=== PATIENT | female | born 1940 | race Caucasian/White ===

== ENCOUNTER → 2016-11-14 | Outpatient (CLI) | payer MEDICARE ==
[~2016-11-14] MED LIST: ALPR0.5T10 PO; CRESTOR5 MG PO; MAGN500C PO; SUCR1TAB PO
--- NOTE | 2016-11-14 12:48 | KCIC ---
PROCEDURE Four view left knee HISTORY Acute pain of the left knee. Numbness and tingling. Pain anteriorly, for 1 day. COMPARISON None FINDINGS No evidence of acute fracture or bone destruction. Joint spaces are intact. No significant soft tissue abnormality. A couple of small soft tissue calcifications are noted on the tangential patellar view, appear chronic. IMPRESSION No acute radiographic findings. Electronically signed by: Reza Jain MD (Nov 14, 2016 12:47:41)
== END | disposition home or self-care (01) ==
LOC: KCIC 11:38
PROVIDERS: ATTEND Family Medicine
DX: M25.862 Other specified joint disorders, left knee (principal); R20.0 Anesthesia of skin
CPT/HCPCS: 73564

== ENCOUNTER → 2017-02-12 | Outpatient (CLI) | payer MEDICARE ==
[~2017-02-12] MED LIST changes: +ACLI400A2 IH; +ALLO300T PO; +ASPI81TA2 PO; +CALC1TAB75 PO; +CETI10TA22 PO; +DOCU-27 PO; +GLIM4TAB2 PO; +GUAI600T38 PO; +LEVO100T5 PO; +LIDO700A4 TP; +PANT40TA5 PO; +PRAM0.255 PO; +PROAIR HFA8.5 GM INH; +SILV20CR4 TP; +TRAM50TA PO
[2017-02-12 15:33] LABS: BASO # 0.1 x10^3/uL (0.0-0.2); BASO % 1 % (0-3); EOS % 6 % (0-3); HEMATOCRIT 39.1 % (36.0-47.0); HEMOGLOBIN 12.6 g/dL (12.0-15.5); LYMPH # 1.5 x10^3/uL (1.0-4.8); LYMPH % 25 % (24-48); MEAN CORPUSCULAR HEMOGLOBIN 31 pg (25-35); MEAN CORPUSCULAR HGB CONC 32 g/dL (31-37); MEAN CORPUSCULAR VOLUME 95 fL (79-100); MONO % 9 % (0-9); NEUT % 60 % (31-73); PLATELET COUNT 168 x10^3/uL (140-400); RED BLOOD COUNT 4.09 x10^6/uL (3.50-5.40); RED CELL DISTRIBUTION WIDTH 14.3 % (11.5-14.5); WHITE BLOOD COUNT 6.1 x10^3/uL (4.0-11.0)
[2017-02-12 16:02] LABS: ALBUMIN 3.3 g/dL (3.4-5.0); ALBUMIN/GLOBULIN RATIO 0.8 (1.0-1.7); CALCIUM 9.4 mg/dL (8.5-10.1); CREATININE 1.2 mg/dL (0.6-1.0); GFR 43.3; POTASSIUM 3.9 mmol/L (3.5-5.1); TOTAL BILIRUBIN 0.4 mg/dL (0.2-1.0); TOTAL PROTEIN 7.6 g/dL (6.4-8.2)
--- NOTE | 2017-02-13 10:35 | PREOP HP ---
DATE OF SERVICE: 02/16/2017 HISTORY OF PRESENT ILLNESS: The patient is a very pleasant 77-year-old woman, who is having difficulty with lower back pain and pain which radiates into both of her buttocks combined with weakness in her lower extremities, the right side is more involved than the left. The problem started about 5 years ago. Standing and walking increase her pain. Sitting gives her some relief. She takes tramadol for pain. She has had chiropractic help which initially gave her some relief, but currently is no longer effective. In , she did undergo lumbar surgery and did well from that. PAST MEDICAL HISTORY: Arthritis, gout, COPD, swelling of limbs, tumor/growth. PAST SURGICAL HISTORY: Back surgery in 1997, hysterectomy in 1996, cholecystectomy in 2006. FAMILY HISTORY: Alzheimer's, cancer, diabetes, heart problem/disease. SOCIAL HISTORY: Transit Bus Operator. . Exercises daily. Denies substance abuse. Denies tobacco use. Denies alcohol use. ALLERGIES: MORPHINE, CODEINE. CURRENT MEDICATIONS: Levothyroxine, alprazolam, pantoprazole, Crestor, , ProAir HFA, Lidoderm, tramadol, allopurinol, pramipexole, dihydrochloride, SSD, hydrocortisone, aspirin, magnesium, Mucinex, Zyrtec. REVIEW OF SYSTEMS: The 12-point review of systems was obtained and is noncontributory except for that mentioned above. NEUROSURGERY EXAMINATION: GENERAL APPEARANCE: Alert, pleasant, in no acute distress. HEAD: Normocephalic and atraumatic. SKIN: Warm and dry, well-healed lumbar incision. MUSCULOSKELETAL: Lumbar paraspinal muscle bulk is normal, restricted range of motion of lumbar spine, [id number] tenderness of lower lumbar spine with palpation. Normal range of motion of the lower extremities bilaterally. EXTREMITIES: No clubbing, cyanosis, or edema. NEUROLOGIC: Alert and oriented x 3, normal recent and remote memory, strength 5/5 in bilateral lower extremities, sensory was intact to light touch in bilateral lower extremities, reflexes were present and symmetric in the lower extremities bilaterally. Positive straight leg raising on the right, negative straight leg raising on the left, she uses a wheelchair. IMAGING DATA: Reviewed. I reviewed a recent lumbar MRI scan. On that study, postoperative changes were present at L3-L4. At L4-L5, there is severe lumbar stenosis present along with lateral recess narrowing. ASSESSMENT: 1. Spinal stenosis, lumbar region. PLAN: She has severe spinal stenosis and has failed improvement with conservative measures. My recommendation at this point is that consider undergoing lumbar laminectomy at L4-L5. I spoke with her about the surgery and the risks involved. She understands. She would like to go ahead. HAILE TOM MD DR: JEREMIAH/cande JOB#: [id number] / [id number]
== END | disposition home or self-care (01) ==
LOC: SURGPAT 16:25
PROVIDERS: ATTEND Neurological Surgery
DX: M48.06 Spinal stenosis, lumbar region (principal)
CPT/HCPCS: 36415; 80053; 85027; 87641

== ENCOUNTER 2017-02-16 06:59 | Observation (INO) | payer MEDICARE ==
[2017-02-16] VITALS (8 sets, daily range): BP systolic 142–187; BP diastolic 44–113
[~2017-02-16] VITALS: Ht 158.8 cm; Wt 114.3 kg
[~2017-02-16 06:59] MED LIST changes: +BACITRACIN 50,000 UNIT in IV NORMAL SALINE 1000ML BAG 1,000 ML IRR ONE; +BUPIVAC MPF-EPI 0.5%-1:200000 30 ML VIAL. ONE; +CEFAZOLIN 2GM PREMIX 50 ML IV PRN; -DOCU-27 PO; +GELATIN SPONGE SIZE 100. ONE; +KETOROLAC 60 MG/2 ML INJ FOR OR. ONE; -PRAM0.255 PO; +THROMBIN TOPICAL 20,000 UNIT SPRAY.SYRN KIT TP ONE
[2017-02-16] MEDS ORDERED: IV RINGERS,LACTATED 1000ML 1,000 ML IV SCH (07:00)
[2017-02-16] MEDS ORDERED: FENTANYL PF 100 MCG/2 ML VIAL. IV PRN ×4 (07:00→19:45)
[2017-02-16] MEDS ORDERED: PROCHLORPERAZINE 10 MG/2 ML VIAL. IV PRN (07:00)
[2017-02-16] MEDS ORDERED: ONDANSETRON PF 4 MG/2 ML VIAL. IV PRN ×2 (07:00→13:30)
[2017-02-16] MEDS ORDERED: LIDOCAINE 1% 1 ML SYRINGE. ID PRN (07:00)
[2017-02-16] MEDS ORDERED: ROCURONIUM 50 MG/5 ML VIAL. ONE (08:13)
[2017-02-16] MEDS ORDERED: DEXAMETHASONE SOD PHOS 20 MG/5 ML VIAL. ONE (08:13)
[2017-02-16] MEDS ORDERED: PHENYLEPHRINE 10 MG/ML VIAL. ONE (08:13)
[2017-02-16] MEDS ORDERED: PROPOFOL 50 ML IV ONE ×2 (08:13→10:20)
[2017-02-16] MEDS ORDERED: REMIFENTANIL 2 MG VIAL. IV ONE (08:13)
[2017-02-16] MEDS ORDERED: PROPOFOL 20 ML IV ONE (08:13)
[2017-02-16] MEDS ORDERED: LIDOCAINE 2% 100 MG/5 ML SYRINGE. ONE (08:13)
[2017-02-16] MEDS ORDERED: FENTANYL PF 100 MCG/2 ML VIAL. ONE (08:13)
[2017-02-16] MEDS ORDERED: ALBUTEROL SULFATE 2.5 MG/3 ML NEBU. ONE (08:22)
[2017-02-16] MEDS ORDERED: EPHEDRINE PF IN SALINE 50 MG/5 ML DISP.SYRIN. IV ONE (09:40)
[2017-02-16] MEDS ORDERED: NEOSTIGMINE METHYLSULFATE 5 MG/5 ML SYRINGE. ONE (11:07)
[2017-02-16] MEDS ORDERED: ONDANSETRON PF 4 MG/2 ML VIAL. ONE (11:07)
[2017-02-16] MEDS ORDERED: DESFLURANE > 120 MINUTES IH ONE (11:07)
[2017-02-16] MEDS ORDERED: GLYCOPYRROLATE 1 MG/5 ML VIAL. ONE (11:08)
[2017-02-16] MEDS ORDERED: ALBUTEROL SULFATE 2.5 MG/3 ML NEBU. NEB ONE (12:45)
[2017-02-16] MEDS ORDERED: FUROSEMIDE 20 MG/2 ML VIAL. IVP ONE (12:45)
[2017-02-16] MEDS ORDERED: ALBUTEROL SULFATE 2.5 MG/3 ML NEBU. NEB PRN (13:15)
[2017-02-16] MEDS ORDERED: MAGNESIUM HYDROXIDE 2,400 MG/30 ML ORAL.SUSP. PO PRN (13:30)
[2017-02-16] MEDS ORDERED: MAG HYDROX/ALUMINUM HYD/SIMETH 30 ML ORAL.SUSP PO PRN (13:30)
[2017-02-16] MEDS ORDERED: 0.9 % SODIUM CHLORIDE 10 ML DISP.SYRIN. IV PRN (13:30)
[2017-02-16] MEDS ORDERED: CALCIUM CARBONATE 500 MG TAB.CHEW PO PRN (13:30)
[2017-02-16] MEDS ORDERED: DIPHENHYDRAMINE HCL 25 MG CAPSULE PO PRN (13:30)
[2017-02-16] MEDS ORDERED: DIPHENHYDRAMINE 50 MG/ML VIAL. IV PRN (13:30)
[2017-02-16] MEDS ORDERED: CETIRIZINE HCL 10 MG TABLET. PO PRN (13:45)
[2017-02-16] MEDS ORDERED: TRAMADOL 50 MG TABLET. PO SCH (13:45)
[2017-02-16] MEDS ORDERED: TRAMADOL 50 MG TABLET. PO PRN (13:45)
[2017-02-16] MEDS ORDERED: NON FORMULARY ITEM (Albuterol Sulfate (Proair Hfa Inhaler) 2 PUFF) INH PRN (13:45)
--- NOTE | 2017-02-16 13:51 | RAD ---
Exam: AP portable chest. History: Provided history is rule out pulmonary edema. Comparison: 02/07/2010. Findings: The heart and mediastinal structures are within normal limits for size. Lungs are without infiltrate. No pneumothorax or pleural effusion is appreciated. Impression: 1. No acute cardiopulmonary process.
[2017-02-16 13:55] LABS: HCO3 ABG 22 mmol/L (21-28); PCO2 ABG 39 mmHg (35-46); PH ABG 7.38 (7.35-7.45); PO2 ABG 77 mmHg (65-108); SAT O2 ABG 96 % (92-99)
[2017-02-16] MEDS: TRAMADOL 50 MG TABLET. PO PRN ×2 (14:50→21:07)
--- NOTE | 2017-02-16 14:50 | PDOC ---
Provider Note Provider Note dictated Mild AECOPD CHRISTIANO CADENA MD Feb 16, 2017 14:50
[2017-02-16 14:59] LABS: FIO2 ABG 36
[2017-02-16] MEDS ORDERED: POTASSIUM CL 20MEQ D5-0.45NACL 1,000 ML IV SCH (15:00)
--- NOTE | 2017-02-16 15:34 | CONS ---
DATE OF CONSULTATION: 02/16/2017 ATTENDING PHYSICIAN: Sanchez Ramirez M.D. REASON FOR CONSULTATION: Dyspnea. HISTORY OF PRESENT ILLNESS: The patient is a 77-year-old female, who has been having lower back pain for some time. She was seen by Dr. Sanchez Ramirez, underwent laminectomy. Postoperatively, she was noted to have increasing oxygen requirement and some rhonchi and wheezes. As a result, consultation was obtained and she has been hospitalized. She received breathing treatments. Arterial blood gases obtained later on 4 liters showed a pH of 7.38, pCO2 of 30, and a pO2 of 77. Her chest x-ray did not reveal any acute infiltrates. She feels much better and I have been asked to see her for further evaluation. PAST MEDICAL HISTORY: History of COPD, history of arthritis, and chronic back pain. PAST SURGICAL HISTORY: Back surgery in 1997, hysterectomy in 1996, and cholecystectomy in 2006. FAMILY HISTORY: Alzheimer's disease, cancer, diabetes, and heart problems. SOCIAL HISTORY: She has been a motion graphics artist. . She has a history of tobacco use for 60 years; she quit 7 years ago. REVIEW OF SYSTEMS: Twelve-point systems obtained, pertinent positives discussed in history of present illness, otherwise noncontributory. All systems that were negative were reviewed as well. ALLERGIES: MORPHINE, CODEINE. MEDICATIONS: Reviewed as listed in the MRAD. PHYSICAL EXAMINATION: GENERAL: She is awake, following commands. VITAL SIGNS: Stable. Pulse ox is now in the 90s. HEENT: Sclerae nonicteric. NECK: Supple. LUNGS: Clear breath sounds. No wheezing. CARDIOVASCULAR: Regular rate and rhythm. ABDOMEN: Soft, nontender, obese. EXTREMITIES: With trace pitting edema. LABORATORY DATA: Chest x-ray was reviewed and it is clear with no evidence of CHF. Arterial blood gases are discussed as above. IMPRESSION: 1. Mild postoperative respiratory failure secondary to chronic obstructive pulmonary disease exacerbation. Clinically improved. 2. No evidence of congestive heart failure by chest x-ray. 3. No evidence of pneumonia by chest x-ray. 4. Underlying obesity. RECOMMENDATIONS: 1. Continue with present bronchodilators treatment. 2. Wean off oxygen. 3. Incentive spirometry. 4. Follow Neurosurgery recommendation. 5. Anticipate a hospitalization for 24 hours. CHRISTIANO CADENA MD DR: IAN/cande JOB#: [id number] / [id number]
[2017-02-16] MEDS: METHOCARBAMOL 750 MG TABLET PO SCH ×2 (16:02→21:07)
[2017-02-16] MEDS: SUCRALFATE 1 GM TABLET. PO SCH ×2 (16:22→21:08)
[2017-02-16] MEDS: IPRATRPIUM/ALBUTEROL 0.5/2.5MG 3 ML NEBU. NEB SCH ×2 (16:58→20:46)
[2017-02-16] MEDS ORDERED: PRAM0.255 PO (19:11)
[2017-02-16] MEDS ORDERED: PRAMIPEXOLE 0.25 MG TABLET. PO SCH (21:00)
[2017-02-16] MEDS: ALPRAZOLAM 0.5 MG TABLET. PO SCH (21:00)
[2017-02-16] MEDS: MAGNESIUM OXIDE 400 MG TABLET PO SCH (21:00)
[2017-02-16] MEDS ORDERED: ACLIDINIUM BROMIDE IH SCH (21:00)
[2017-02-16] MEDS: DOCUSATE SODIUM 100 MG CAPSULE. PO SCH (21:08)
[2017-02-17 03:27] VITALS: BP_SYST 119; BP_SYST 154; BP_DIAS 50; BP_DIAS 69
[2017-02-17] MEDS: TRAMADOL 50 MG TABLET. PO PRN (05:33)
[2017-02-17 07:00] VITALS: BP 129/69
[2017-02-17] MEDS ORDERED: LEVOTHYROXINE 100 MCG TABLET PO SCH (07:00)
[2017-02-17] MEDS: SUCRALFATE 1 GM TABLET. PO SCH (07:12)
[2017-02-17] MEDS: IPRATRPIUM/ALBUTEROL 0.5/2.5MG 3 ML NEBU. NEB SCH (07:30)
[2017-02-17] MEDS ORDERED: PANTOPRAZOLE 40 MG TABLET.DR. PO SCH (07:30)
[2017-02-17] MEDS: METHOCARBAMOL 750 MG TABLET PO SCH (08:21)
[2017-02-17] MEDS: MAGNESIUM OXIDE 400 MG TABLET PO SCH (08:23)
[2017-02-17] MEDS: ALPRAZOLAM 0.5 MG TABLET. PO SCH (08:24)
[2017-02-17] MEDS: DOCUSATE SODIUM 100 MG CAPSULE. PO SCH (08:24)
[2017-02-17] MEDS ORDERED: silver sulfADIAZINE 1% CREAM 25GM TUBE. TP SCH (09:00)
[2017-02-17] MEDS ORDERED: GUAIFENESIN ER 600 MG TABLET.ER PO SCH (09:00)
[2017-02-17] MEDS ORDERED: GLIMEPIRIDE 2 MG TABLET. PO SCH (09:00)
[2017-02-17] MEDS ORDERED: ASPIRIN CHEWABLE 81 MG TABLET. PO SCH (09:00)
[2017-02-17] MEDS ORDERED: ALLOPURINOL 300 MG TABLET. PO SCH (09:00)
[2017-02-17] MEDS ORDERED: LIDOCAINE (700MG/PATCH) PATCH. TP SCH (09:00)
--- NOTE | 2017-02-17 09:23 | PDOC ---
PULMONARY PROGRESS NOTES Subjective no sob, occ cough, no pain, ready to go home Vitals Vital Signs Date Time Temp Pulse Resp B/P Pulse Ox O2 Delivery O2 Flow Rate FiO2 02/17/17 07:31 94 Room Air 02/17/17 07:00 97.9 88 20 129/69 97.9 02/17/17 03:27 2.0 ROS: No Nausea, No Chest Pain, No Abdominal Pain, No Increase Cough General: Alert HEENT: Other (nxc at perrl nose throat clear) Lungs: Clear Cardiovascular: S1, S2 Abdomen: Soft, Non-tender Neuro Exam: Alert Extremities: No Edema Skin: Warm Labs Laboratory Tests Test 02/16/17 07:58 02/16/17 12:24 02/16/17 13:15 02/16/17 17:00 Glucose (Fingerstick) 127mg/dL (70-99) 173mg/dL (70-99) 277mg/dL (70-99) O2 Saturation 96% (92-99) Arterial Blood pH 7.38 (7.35-7.45) Arterial Blood pCO2 at Patient Temp 39mmHg (35-46) Arterial Blood pO2 at Patient Temp 77mmHg (65-108) Arterial Blood HCO3 22mmol/L (21-28) Arterial Blood Base Excess -3mmol/L (-3-3) FiO2 36 Test 02/16/17 20:47 02/17/17 07:27 Glucose (Fingerstick) 348mg/dL (70-99) 223mg/dL (70-99) Laboratory Tests Test 02/16/17 12:24 02/16/17 13:15 02/16/17 17:00 02/16/17 20:47 Glucose (Fingerstick) 173mg/dL (70-99) 277mg/dL (70-99) 348mg/dL (70-99) O2 Saturation 96% (92-99) Arterial Blood pH 7.38 (7.35-7.45) Arterial Blood pCO2 at Patient Temp 39mmHg (35-46) Arterial Blood pO2 at Patient Temp 77mmHg (65-108) Arterial Blood HCO3 22mmol/L (21-28) Arterial Blood Base Excess -3mmol/L (-3-3) FiO2 36 Test 02/17/17 07:27 Glucose (Fingerstick) 223mg/dL (70-99) Medications Active Scripts Medications Dose Route/Sig Days Date Category Mirapex (Pramipexole Di-Hcl) 0.25 Mg Tablet 1 Tab PO QHS 02/16/17 Reported Magnesium (Magnesium Oxide) 500 Mg Capsule 500 Mg PO BID 02/12/17 Reported Mucinex (Guaifenesin) 600 Mg Tablet.er 600 Mg PO DAILY 02/12/17 Reported Zyrtec (Cetirizine Hcl) 10 Mg Tablet 10 Mg PO 02/12/17 Reported Calcium 600 + Vit D 200 Tablet (Calcium Carbonate/Vitamin D3) 1 Each Tablet 1 Each PO QMWF 02/12/17 Reported Allopurinol 300 Mg Tablet 300 Mg PO DAILY 02/12/17 Reported Silvadene (Silver Sulfadiazine) 20 Gm Cream..g. 1 Radames TP DAILY 02/12/17 Reported Lidoderm (Lidocaine) 700 Mg Adh..patch 1 Patch TP DAILY 02/12/17 Reported Proair Hfa Inhaler (Albuterol Sulfate) 8.5 Gm Hfa.aer.ad 2 Puff INH PRN Q6HRS PRN 02/12/17 Reported Tudorza Pressair (Aclidinium [place]) 400 Mcg Aer.pow.ba 2 Puff IH BID 02/12/17 Reported Pantoprazole Sodium 40 Mg Tablet.dr 40 Mg PO DAILY 02/12/17 Reported Glimepiride 4 Mg Tablet 1 Tab PO DAILY 02/12/17 Reported Levothyroxine Sodium 100 Mcg Tablet 1 Tab PO DAILY 02/12/17 Reported Aspirin 81 Mg Tab.chew 1 Tab PO DAILY 02/12/17 Reported Tramadol Hcl 50 Mg Tablet 1-2 Tab PO BID 02/12/17 Reported Sucralfate 1 Gm Tablet 1 Gm PO QIDACHS 02/13/14 Reported Alprazolam 0.5 Mg Tab.rapdis 0.5 Mg PO BID 02/13/14 Reported Impression . IMPRESSION: 1. Mild postoperative respiratory failure secondary to chronic obstructive pulmonary disease exacerbation. Clinically improved. 2. No evidence of congestive heart failure by chest x-ray. 3. No evidence of pneumonia by chest x-ray. 4. Underlying obesity. Plan . RECOMMENDATIONS: 1. bronchodilators treatment. 2. off oxygen. 3. Incentive spirometry. 4. Follow Neurosurgery recommendation. 5. ok to dc discussed w EDUAR Galeana MD Feb 17, 2017 09:23
--- NOTE | 2017-02-17 10:20 | DISCH ---
DISCHARGE INSTRUCTIONS Condition on Discharge Condition on Discharge: Stable Activity After Discharge Activity Instructions for Disc: Activity as tolerated, Avoid exertion Other activity instructions: no driving for a week Bathing Instructions: Shower-keep dressing dry Lifting Instructions after Dis: No heavy lifting, No pulling or pushing, Do not lift >10 pounds Diet after Discharge Additional Diet Restrictions: resume home diet Wound Incision Care Wound/Incision Care: Ice to area for comfort Other wound/incision instructi: may remove dressing tomorrow if dry than may shower- no soaking Contacting the after DC Call your doctor for: Concerns you may have Follow-Up Follow up with: Dr. Tom's nurse [phone] HAILE TOM MD Feb 17, 2017 10:20
[2017-02-17] MEDS ORDERED: DOCU-27 PO (10:25)
[2017-02-17 11:00] VITALS: BP 146/61
--- NOTE | 2017-02-18 11:32 | PREOP HP ---
DATE OF SERVICE: 02/16/2017 HISTORY OF PRESENT ILLNESS: The patient is a very pleasant 77-year-old woman, who is having difficulty with lower back pain and pain which radiates into both of her buttocks combined with weakness in her lower extremities, the right side is more involved than the left. The problem started about 5 years ago. Standing and walking increase her pain. Sitting gives her some relief. She takes tramadol for pain. She has had chiropractic help which initially gave her some relief, but currently is no longer effective. In , she did undergo lumbar surgery and did well from that. PAST MEDICAL HISTORY: Arthritis, gout, COPD, swelling of limbs, tumor/growth. PAST SURGICAL HISTORY: Back surgery in 1997, hysterectomy in 1996, cholecystectomy in 2006. FAMILY HISTORY: Alzheimer's, cancer, diabetes, heart problem/disease. SOCIAL HISTORY: Program Lead. . Exercises daily. Denies substance abuse. Denies tobacco use. Denies alcohol use. ALLERGIES: MORPHINE, CODEINE. CURRENT MEDICATIONS: Levothyroxine, alprazolam, pantoprazole, Crestor, , ProAir HFA, Lidoderm, tramadol, allopurinol, pramipexole, dihydrochloride, SSD, hydrocortisone, aspirin, magnesium, Mucinex, Zyrtec. REVIEW OF SYSTEMS: The 12-point review of systems was obtained and is noncontributory except for that mentioned above. NEUROSURGERY EXAMINATION: GENERAL APPEARANCE: Alert, pleasant, in no acute distress. HEAD: Normocephalic and atraumatic. SKIN: Warm and dry, well-healed lumbar incision. MUSCULOSKELETAL: Lumbar paraspinal muscle bulk is normal, restricted range of motion of lumbar spine, [id number]-[id number] tenderness of lower lumbar spine with palpation. Normal range of motion of the lower extremities bilaterally. EXTREMITIES: No clubbing, cyanosis, or edema. NEUROLOGIC: Alert and oriented x 3, normal recent and remote memory, strength 5/5 in bilateral lower extremities, sensory was intact to light touch in bilateral lower extremities, reflexes were present and symmetric in the lower extremities bilaterally. Positive straight leg raising on the right, negative straight leg raising on the left, she uses a wheelchair. IMAGING DATA: Reviewed. I reviewed a recent lumbar MRI scan. On that study, postoperative changes were present at L3-L4. At L4-L5, there is severe lumbar stenosis present along with lateral recess narrowing. ASSESSMENT: 1. Spinal stenosis, lumbar region. PLAN: She has severe spinal stenosis and has failed improvement with conservative measures. My recommendation at this point is that consider undergoing lumbar laminectomy at L4-L5. I spoke with her about the surgery and the risks involved. She understands. She would like to go ahead. HAILE TOM MD DR: JEREMIAH/cande JOB#: [id number] / [id number]
[2017-02-19] MEDS ORDERED: CALCIUM CARB/VIT D3 500/200 TABLET. PO SCH (09:00)
--- NOTE | 2017-02-19 15:09 | PATHOLOGY ---
PATHOLOGY REPORT * * * * * * * * FINAL DIAGNOSIS: Segments of fibrocartilaginous, fibroadipose, and skeletal muscle tissue, lumbar decompression: - Focal degenerative changes of fibrocartilaginous tissue. COMMENT: There is no evidence of an acute inflammatory process or malignancy. (JPM:; d/t: 02/19/17) REPORT ELECTRONICALLY SIGNED BY: Wade Christian M.D. DATE/TIME: 02/19/2017 15:08 * * * * * * * * GROSS PATHOLOGY: Received in formalin labeled "Julissa Bowie, lumbar decompression" are multiple segments of campos, rubbery, and gritty tissue. The specimen measures 4.9 x 3.8 x 1.1 cm in aggregate dimensions. The tissue is submitted representatively in cassette A1.(CAA; 02/16/2017) INITIAL CPT CODE(S): A; 30419 Professional services performed [place] [facility] [place] [address] Technical services performed by [facility] at [address] [place] [address] [address], [place] [address]. SPECIMEN(S) RECEIVED: A.Lumbar decompression CLINICAL HISTORY: Lumbar stenosis PATIENT: JULISSA BOWIE /AGE: 3 1940 (Age: 77) PATIENT #: [id number] ALT CASE #: SPECIMEN COLLECTION DATE: 02/16/2017 SPECIMEN RECEIVED DATE: 02/16/2017 [facility] - [address] [place] [address] - PHONE: [phone] * * * END OF REPORT * * *
--- NOTE | 2017-02-27 21:08 | OP ---
DATE OF SURGERY: 02/16/2017 PREOPERATIVE DIAGNOSES: Lumbar spinal stenosis L4-L5 with severe lumbar radiculopathy. POSTOPERATIVE DIAGNOSES: Lumbar spinal stenosis L4-L5 with severe lumbar radiculopathy. OPERATION PERFORMED: Bilateral hemilaminotomies with decompression of dura and nerve root L4-L5. This is re-operation. OPERATIVE INDICATIONS: The patient is a very pleasant 77-year-old woman who was having difficulty with low back pain and pain which radiates to both of her lower extremities. On imaging studies, she was found to have severe lumbar spinal stenosis at L4-L5. In the past, she has undergone lumbar surgery at L3-L4 and L4-L5, and I recommended micro decompressive surgery after she failed to improve with conservative measures. She understood the surgery and the risks involved, she wished to go ahead. DESCRIPTION OF PROCEDURE: Following general endotracheal anesthesia, the patient was positioned prone on the operating room table. We were careful to avoid any pressure points. Her lumbar region was prepped and draped in the standard fashion. JUDY hose and A-V impulse boots were applied for DVT prophylaxis. The microscope was draped, fluoroscopy was draped and brought into field. Monitoring was established. Ancef 2 grams was given less than 1 hour prior to initiation of the surgery. Using fluoroscopic guidance, a midline incision was made directly over the L4-L5 interspace. I dissected down through the skin and subcutaneous tissue and reflected the paraspinal muscles off the transverse processes and lamina of L4 and L5 and I placed a Veteran micro disk retractor on the right side. I brought in the long curettes and I exposed the edges of her previous surgery and removed considerable scar. I then brought in the high-speed air drill previous operation superiorly, laterally and inferiorly with a high-speed air drill through the microscope with using microscopic technique. I decompressed the exiting roots. I worked superiorly and removed scar and then I peeled away ligamentum flavum superiorly from medial to laterally and then carried this dissection inferiorly. I exposed the disk and no diskectomy was warranted. I fully decompressed the entire region. I worked virtually to the midline. After this was accomplished, then I went to the left side and I performed the identical operation on the left side. Again I used a high-speed air drill. Again I trimmed away thickened scar and thickened ligamentum flavum, exposed the dura and I obtained a wide decompression. Again, no diskectomy was warranted. I irrigated copiously. I felt that I had an excellent decompression of the entire region. I then removed the retractor, obtained hemostasis in the muscle, irrigated copiously. I then closed the wound with absorbable suture. The skin was closed with 4-0 subcuticular stitch. Operation went very well and the patient was taken to recovery room in excellent condition. I was quite pleased with the surgery. HAILE TOM MD DR: JEREMIAH/cande JOB#: [id number] / [id number]
== END 2017-02-17 12:00 | disposition home or self-care (01) ==
LOC: SURG 06:59 → 4 NORTH 13:24
PROVIDERS: ADMIT Neurological Surgery; ATTEND Neurological Surgery
DX: M48.06 Spinal stenosis, lumbar region (principal); M54.16 Radiculopathy, lumbar region; E66.9 Obesity, unspecified; J95.821 Acute postprocedural respiratory failure; M10.9 Gout, unspecified; Z87.891 Personal history of nicotine dependence; Z90.49 Acquired absence of other specified parts of digestive tract; Z90.710 Acquired absence of both cervix and uterus; Z87.09 Personal history of other diseases of the respiratory system; M19.90 Unspecified osteoarthritis, unspecified site
CPT/HCPCS: 36600; 63047; 71010; 76000; 82805; 82947; 88304; 94250; 94640; 94760; 97161; G0378; G0379; G8978; G8979; G8980; J0690; J1100; J1885; J2405; J2704; J2710; J3010; J3490; J7030; J7120; J7620; J0780

== ENCOUNTER 2017-09-03 21:45 | Inpatient (IN) | payer MEDICARE ==
[~2017-09-03] VITALS: Ht 154.9 cm; Wt 111.7 kg
[~2017-09-03 21:45] MED LIST changes: +ASPI-630 PO; -ASPI81TA2 PO; -BACITRACIN 50,000 UNIT in IV NORMAL SALINE 1000ML BAG 1,000 ML IRR ONE; -BUPIVAC MPF-EPI 0.5%-1:200000 30 ML VIAL. ONE; -CEFAZOLIN 2GM PREMIX 50 ML IV PRN; +DOCU-109 PO; -GELATIN SPONGE SIZE 100. ONE; -GUAI600T38 PO; +GUAI600T47 PO; -KETOROLAC 60 MG/2 ML INJ FOR OR. ONE; -MAGN500C PO; +MAGN500C10 PO; +PRAM0.255 PO; +SILV20CR14 TP; -SILV20CR4 TP; -THROMBIN TOPICAL 20,000 UNIT SPRAY.SYRN KIT TP ONE
--- NOTE | 2017-09-03 22:05 | PHYS DOC ---
Past Medical History Past Medical History: COPD, Diabetes-Type II, Hypertension Additional Past Medical Histor: Hernia (not repaired) Past Surgical History: Cholecystectomy, Hysterectomy Additional Past Surgical Histo: Back (February 2017) Smoking: Quit Greater Than 1 Year Drug Use: None Social History Narrative: Adult General Chief Complaint Chief Complaint: NAUSEA/VOMITING/DIARRHA HPI HPI Patient is a 77 year old female who presents with abdominal pain. She was feeling poorly earlier in the day she states at 2 PM when she was "queasy." She then ate at 1900 PM (Jell-O, fruit, yogurt and popcorn) and then developed severe abdominal pain. Pain is around her bellybutton. Became very nauseated and vomited greater than 7 time she states. She's been having normal stools but recently she started becoming quite constipated. No known fever. No chest pain or difficulty breathing. No recent travel. Followed by Dr Jesica Loomis Review of Systems Review of Systems Constitutional: Denies fever or chills Eyes: Denies change in visual acuity, redness, or eye pain HENT: Denies nasal congestion or sore throat Respiratory: Denies cough or shortness of breath Cardiovascular: No chest pain GI: POS abdominal pain, nausea, vomiting, DENIES bloody stools or diarrhea : Denies dysuria or hematuria Musculoskeletal: Denies back pain or joint pain Integument: Denies rash or skin lesions Neurologic: Denies headache, focal weakness or sensory changes Current Medications Current Medications Current Medications Medications (Trade) Dose Ordered Sig/Gabbie Start Time Stop Time Status Last Admin Dose Admin Fentanyl Citrate (Fentanyl 2ml Vial) 50 mcg PRN Q2HR PRN 09/04/17 00:30 09/05/17 00:29 Ondansetron HCl (Zofran) 4 mg PRN Q8HRS PRN 09/04/17 00:30 09/05/17 00:29 Sodium Chloride 1,000 ml @ 125 mls/hr 1X ONCE 09/04/17 00:30 09/04/17 08:29 Allergies Allergies Allergies Coded Allergies Type Severity Reaction Last Updated Verified codeine Allergy Intermediate Nausea and Vomiting 02/16/17 Yes morphine Allergy Intermediate Nausea and Vomiting 02/16/17 Yes Physical Exam Physical Exam Constitutional: Well developed, well nourished, no acute distress, non-toxic appearance. HENT: Normocephalic, atraumatic, bilateral external ears normal, oropharynx moist, no oral exudates, nose normal. Eyes: PERRLA, EOMI, conjunctiva normal, no discharge. Neck: Normal range of motion, no tenderness, supple, no stridor. Cardiovascular:Heart rate regular rhythm, no murmur Lungs & Thorax: Bilateral breath sounds clear to auscultation Abdomen: Bowel sounds normal, soft, DIFFUSE tenderness; no rebound or guarding; mass palpable infra-umbilical, no pulsatile masses. Skin: Warm, dry, no erythema, no rash. Back: No tenderness, no CVA tenderness. Extremities: No tenderness, no cyanosis, no clubbing, ROM intact, no edema. Neurologic: Alert and oriented X 3, normal motor function, normal sensory function, no focal deficits noted. Psychologic: Affect normal, judgement normal, mood normal. Current Patient Data Vital Signs Vital Signs Date Time Temp Pulse Resp B/P (MAP) Pulse Ox O2 Delivery O2 Flow Rate FiO2 09/03/17 23:30 84 18 139/52 (81) 94 Room Air 09/03/17 21:53 98.4 98.4 Lab Values Laboratory Tests Test 09/03/17 21:50 White Blood Count 14.8 x10^3/uL (4.0-11.0) H Red Blood Count 4.67 x10^6/uL (3.50-5.40) Hemoglobin 14.6 g/dL (12.0-15.5) Hematocrit 43.8 % (36.0-47.0) Mean Corpuscular Volume 94 fL (79-100) Mean Corpuscular Hemoglobin 31 pg (25-35) Mean Corpuscular Hemoglobin Concent 33 g/dL (31-37) Red Cell Distribution Width 13.8 % (11.5-14.5) Platelet Count 186 x10^3/uL (140-400) Neutrophils (%) (Auto) 81 % (31-73) H Lymphocytes (%) (Auto) 13 % (24-48) L Monocytes (%) (Auto) 5 % (0-9) Eosinophils (%) (Auto) 1 % (0-3) Basophils (%) (Auto) 1 % (0-3) Neutrophils # (Auto) 11.9 x10^3uL (1.8-7.7) H Lymphocytes # (Auto) 1.9 x10^3/uL (1.0-4.8) Monocytes # (Auto) 0.7 x10^3/uL (0.0-1.1) Eosinophils # (Auto) 0.2 x10^3/uL (0.0-0.7) Basophils # (Auto) 0.1 x10^3/uL (0.0-0.2) Sodium Level 141 mmol/L (136-145) Potassium Level 4.3 mmol/L (3.5-5.1) Chloride Level 103 mmol/L (98-107) Carbon Dioxide Level 28 mmol/L (21-32) Anion Gap 10 (6-14) Blood Urea Nitrogen 27 mg/dL (7-20) H Creatinine 1.6 mg/dL (0.6-1.0) H Estimated GFR (Cockcroft-Gault) 31.1 BUN/Creatinine Ratio 17 (6-20) Glucose Level 147 mg/dL (70-99) H Calcium Level 9.6 mg/dL (8.5-10.1) Total Bilirubin 0.4 mg/dL (0.2-1.0) Aspartate Amino Transferase (AST) 31 U/L (15-37) Alanine Aminotransferase (ALT) 26 U/L (14-59) Alkaline Phosphatase 100 U/L (46-116) Creatine Kinase 122 U/L (26-192) Creatine Kinase MB (Mass) 1.0 ng/mL (0.0-3.6) Creatine Kinase MB Relative Index 0.8 % (0-4) Troponin I Quantitative < 0.017 ng/mL (0.000-0.055) Total Protein 9.5 g/dL (6.4-8.2) H Albumin 4.0 g/dL (3.4-5.0) Albumin/Globulin Ratio 0.7 (1.0-1.7) L Lipase 110 U/L (73-393) Laboratory Tests 09/03/17 21:50 Laboratory Tests 09/03/17 21:50 EKG EKG EKG interpreted by myself at 2244 PM with NSR, rate 83, no acute ST elevation; non specific ST changes. Radiology/Procedures Radiology/Procedures [facility] [address] [place] [address] IMAGING REPORT Signed PATIENT: BHUMI BOWIE ACCOUNT: [id number] : 1940 LOCATION: ER AGE: 77 SEX: F EXAM STATUS: REG ER ORD. PHYSICIAN: ROMARIO OLIVEIRA MD REASON: abd pain; hernia; elev WBC; r/o obstruction PROCEDURE: CT ABDOMEN PELVIS WO CONTRAST CT scan of the abdomen and pelvis without contrast 09/03/2017 CLINICAL HISTORY: Abdominal pain with nausea. TECHNIQUE: Unenhanced, contiguous, 5 mm axial sections were obtained through the abdomen and pelvis. One or more of the following individualized dose reduction techniques were utilized for this study: 1. Automated exposure control. 2. Adjustment of the mA and/or kV according to patient size. 3. Use of iterative reconstruction technique. FINDINGS: Images through the lung bases demonstrate mild cardiomegaly. A 6 mm calcified granuloma is seen involving the left lower lobe. The liver, spleen, pancreas, adrenal glands and kidneys are within normal limits. Moderate atherosclerotic calcification of the abdominal aorta and its branches is noted. The abdominal aorta tapers normally. Surgical clips are seen within the gallbladder fossa consistent with a cholecystectomy. No free fluid or free air is seen within the abdomen. Mildly dilated air and fluid-filled small and large bowel loops are seen throughout the abdomen without definite evidence of bowel obstruction. The appendix is well-visualized and is within normal limits. A fat-containing ventral hernia is seen which measures 6.8 cm transverse diameter. This is superior to the umbilicus. Images through the pelvis demonstrate the urinary bladder to be slightly contracted. Patient is post hysterectomy. No adnexal mass is seen. No free fluid is noted. Degenerative changes are seen involving the thoracic and throughout the lumbar spine and both hips. IMPRESSION: No acute abnormality is seen. Electronically signed by: Christopher Earl MD (09/04/2017 12:04 AM) [facility] DICTATED and SIGNED BY: CHRISTOPHER EARL MD DATE: 09/03/17 4825 CC: ROMARIO OLIVEIRA MD; JESICA SORIA MD ~ Course & Med Decision Making Course & Med Decision Making Evaluated patient upon arrival. Concerned about hernia causing pain with vomiting. IV NS, Zofran. At 2320 PM: Elev BUN/Cr; Elev WBC. Ct ordered without contrast. At 0015 AM: CT results back with hernia without incarceration but with dilated loops of bowel. Admit (Spoke w Dr Gee). Keep NPO. I have spoken with the patient and/or caregivers. I have explained the patient' s condition, diagnosis and treatment plan based on the information available to me at this time. I have answered the patient's and/or caregiver's questions and addressed any concerns. The patient and/or caregivers have as good an understanding of the patient's diagnosis, condition and treatment plan as can be expected at this point. The patient has been stabilized within the capability of the emergency department. The patient will be transported for further care and management or will be moved to an observation or inpatient service. I have communicated with the staff or medical practitioner taking over this patient's care. I have assessed this patient clinically and believe that their condition requires admission to the hospital. After consulting the admitting physician about this case, they have asked that I admit this patient to their service as an inpatient based on the clinical presentation and my impression. Dragon Disclaimer Dragon Disclaimer This electronic medical record was generated, in whole or in part, using a voice recognition dictation system. Departure Departure Impression: Primary Impression: Abdominal pain Additional Impression: Hernia of abdominal cavity Disposition: ADMITTED INPATIENT Admitting Physician: Deana Gee Condition: STABLE Referrals: JESICA SORIA MD (PCP) Problem Qualifiers Primary Impression: Abdominal pain Abdominal location: periumbilical Qualified Codes: R10.33 - Periumbilical pain ROMARIO OLIVEIRA MD Sep 03, 2017 22:05
[2017-09-03 22:10] LABS: BASO # 0.1 x10^3/uL (0.0-0.2); BASO % 1 % (0-3); EOS % 1 % (0-3); HEMATOCRIT 43.8 % (36.0-47.0); HEMOGLOBIN 14.6 g/dL (12.0-15.5); LYMPH # 1.9 x10^3/uL (1.0-4.8); LYMPH % 13 % (24-48); MEAN CORPUSCULAR HEMOGLOBIN 31 pg (25-35); MEAN CORPUSCULAR HGB CONC 33 g/dL (31-37); MEAN CORPUSCULAR VOLUME 94 fL (79-100); MONO % 5 % (0-9); NEUT % 81 % (31-73); PLATELET COUNT 186 x10^3/uL (140-400); RED BLOOD COUNT 4.67 x10^6/uL (3.50-5.40); RED CELL DISTRIBUTION WIDTH 13.8 % (11.5-14.5); WHITE BLOOD COUNT 14.8 x10^3/uL (4.0-11.0)
[2017-09-03] MEDS ORDERED: IV NORMAL SALINE 1000ML BAG 1,000 ML IV SCH (22:15)
[2017-09-03] MEDS ORDERED: ONDANSETRON PF 4 MG/2 ML VIAL. IV ONE ×2 (22:15→23:30)
[2017-09-03 22:21] LABS: CALCIUM 9.6 mg/dL (8.5-10.1); CREATININE 1.6 mg/dL (0.6-1.0); GFR 31.1; POTASSIUM 4.3 mmol/L (3.5-5.1)
[2017-09-03 22:27] LABS: ALBUMIN/GLOBULIN RATIO 0.7 (1.0-1.7); TOTAL BILIRUBIN 0.4 mg/dL (0.2-1.0); TOTAL PROTEIN 9.5 g/dL (6.4-8.2)
[2017-09-04] VITALS (7 sets, daily range): BP systolic 154–184; BP diastolic 51–98
--- NOTE | 2017-09-04 00:07 | RAD ---
CT scan of the abdomen and pelvis without contrast 09/03/2017 CLINICAL HISTORY: Abdominal pain with nausea. TECHNIQUE: Unenhanced, contiguous, 5 mm axial sections were obtained through the abdomen and pelvis. One or more of the following individualized dose reduction techniques were utilized for this study: 1. Automated exposure control. 2. Adjustment of the mA and/or kV according to patient size. 3. Use of iterative reconstruction technique. FINDINGS: Images through the lung bases demonstrate mild cardiomegaly. A 6 mm calcified granuloma is seen involving the left lower lobe. The liver, spleen, pancreas, adrenal glands and kidneys are within normal limits. Moderate atherosclerotic calcification of the abdominal aorta and its branches is noted. The abdominal aorta tapers normally. Surgical clips are seen within the gallbladder fossa consistent with a cholecystectomy. No free fluid or free air is seen within the abdomen. Mildly dilated air and fluid-filled small and large bowel loops are seen throughout the abdomen without definite evidence of bowel obstruction. The appendix is well-visualized and is within normal limits. A fat-containing ventral hernia is seen which measures 6.8 cm transverse diameter. This is superior to the umbilicus. Images through the pelvis demonstrate the urinary bladder to be slightly contracted. Patient is post hysterectomy. No adnexal mass is seen. No free fluid is noted. Degenerative changes are seen involving the thoracic and throughout the lumbar spine and both hips. IMPRESSION: No acute abnormality is seen. Electronically signed by: Christopher Earl MD (09/04/2017 12:04 AM) [facility]
[2017-09-04 00:29] LABS: BILIRUBIN,URINE NEGATIVE (NEG); GLUCOSE,URINE NEGATIVE (NEG); NITRITE,URINE NEGATIVE (NEG); PH,URINE 6.5; PROTEIN,URINE NEGATIVE (NEG-TRACE); UROBILINOGEN,URINE 0.2 mg/dL (0.2 mg/dL)
[2017-09-04] MEDS ORDERED: IV NORMAL SALINE 1000ML BAG 1,000 ML IV ONE (00:30)
[2017-09-04] MEDS ORDERED: ONDANSETRON PF 4 MG/2 ML VIAL. IV PRN ×2 (00:30→10:30)
[2017-09-04 00:37] LABS: BACTERIA,URINE MODERATE /HPF (0-FEW); RBC,URINE 0 /HPF (0-2); SQUAMOUS EPITHELIAL CELL,UR MOD /LPF
[2017-09-04] MEDS: fentaNYL PF VIAL 100 MCG/2 ML VIAL IV PRN ×3 (02:21→13:19)
--- NOTE | 2017-09-04 10:29 | EKG ---
[facility] [address] [place] [address] Test Date: 2017-09-03 Test Time: 22:44:10 Pat Name: BHUMI BOWIE Department: Room: 42[facility] Gender: F City Councilman: : 1940 Requested By: ROMARIO OLIVEIRA Order Number: [id number] Reading MD: Estella Nayak Measurements Intervals [place] Rate: 83 P: -90 [place]: 102 QRS: 44 QRSD: 80 T: 66 QT: 372 QTc: 438 Interpretive Statements SINUS RHYTHM NORMAL EKG Electronically Signed On 09-04-2017 19:58:18 CDT by Estella Nayak
[2017-09-04] MEDS ORDERED: ACETAMINOPHEN 325 MG TABLET. PO PRN (10:30)
[2017-09-04] MEDS ORDERED: DOCUSATE SODIUM 100 MG CAPSULE. PO PRN (10:30)
[2017-09-04] MEDS ORDERED: NON FORMULARY ITEM (Albuterol Sulfate (Proair Hfa Inhaler) 2 PUFF) INH PRN (10:30)
[2017-09-04] MEDS ORDERED: hydrALAZINE 20 MG/ML VIAL. IVP PRN (10:30)
[2017-09-04] MEDS: ALPRAZolam 0.5 MG TABLET PO SCH ×2 (10:45→21:00)
[2017-09-04] MEDS: ASPIRIN CHEWABLE 81 MG TABLET. PO SCH (10:57)
[2017-09-04] MEDS: DOCUSATE SODIUM 100 MG CAPSULE. PO SCH ×2 (10:57→21:00)
[2017-09-04] MEDS: MAGNESIUM OXIDE 400 MG TABLET PO SCH (10:57)
[2017-09-04] MEDS: GLIMEPIRIDE 2 MG TABLET. PO SCH (10:57)
[2017-09-04] MEDS: SUCRALFATE 1 GM TABLET. PO SCH ×3 (10:58→21:14)
[2017-09-04] MEDS: ALLOPURINOL 300 MG TABLET. PO SCH (10:58)
[2017-09-04] MEDS: silver sulfADIAZINE 1% CREAM 25GM TUBE. TP SCH (11:00)
[2017-09-04] MEDS: LIDOCAINE (700MG/PATCH) PATCH. TP SCH (11:00)
[2017-09-04] MEDS ORDERED: PANTOPRAZOLE 40 MG TABLET.DR. PO SCH (11:30)
[2017-09-04] MEDS ORDERED: ALBUTEROL SULFATE 2.5 MG/3 ML NEBU. NEB PRN (11:45)
[2017-09-04] MEDS: IPRATRPIUM/ALBUTEROL 0.5/2.5MG 3 ML NEBU. NEB SCH ×2 (12:00→15:28)
[2017-09-04] MEDS ORDERED: HYDR453. TP (13:29)
[2017-09-04] MEDS ORDERED: CLOT15CR5 TP (13:29)
[2017-09-04] MEDS ORDERED: TOLN15SO TP (13:29)
[2017-09-04] MEDS ORDERED: VALS80TA3 PO (13:29)
[2017-09-04] MEDS: IV NORMAL SALINE 1000ML BAG 1,000 ML IV SCH ×2 (13:30→21:21)
[2017-09-04] MEDS ORDERED: DEXTROSE 50% 25 GM / 50ML DISP.SYRIN. IV PRN (13:30)
[2017-09-04] MEDS: HEPARIN PF for SUB-Q USE 5,000 UNIT/0.5 ML VIAL. SQ SCH ×3 (13:37→22:50)
--- NOTE | 2017-09-04 13:39 | PDOC1 ---
History and Physical Date of Admission Date of Admission 09/03/17 Identification/Chief Complaint Chief Complaint abd pain Problems: Source Source: Chart review, Patient History of Present Illness History of Present Illness HPI Patient is a 77 year old female who presents with abdominal pain. Pt said she has a epigastric area hernia for years, wo pain or intervention. She started to have middle abd pain last night, 13/10, no radiation, constant, with N/V, had BM. no fever, chills, sob. has mild chronic cough. CT showed a ventral hernia 6cm wo incarceration. Past Medical History Past Medical History tory: COPD, Diabetes-Type II, Hypertension Additional Past Medical Histor: Hernia (not repaired) Past Surgical History Past Surgical History: Cholecystectomy, Hysterectomy Family History Family History: Hypertension Social History Smoke: <1 pack per day ALCOHOL: social Drugs: None Current Problem List Problem List Problems Medical Problems: (1) Abdominal pain Status: Acute (2) Hernia of abdominal cavity Status: Acute Current Medications Current Medications Current Medications Medications (Trade) Dose Ordered Sig/Gabbie Start Time Stop Time Status Last Admin Dose Admin Acetaminophen (Tylenol) 650 mg PRN Q6HRS PRN 09/04/17 10:30 Albuterol Sulfate (Ventolin Neb Soln) 2.5 mg PRN Q6HRS PRN 09/04/17 11:45 Albuterol/ Ipratropium (Duoneb) 3 ml RTQID 09/04/17 12:00 Allopurinol (Zyloprim) 300 mg DAILY 09/04/17 11:00 Alprazolam (Xanax) 0.5 mg BID 09/04/17 10:45 Aspirin (Children'S Aspirin) 81 mg DAILY 09/04/17 11:00 Calcium/Vitamin D (Oscal D 500mg/ 200uts) 1 tab MoWeFr 09/05/17 09:00 Docusate Sodium (Colace) 100 mg PRN DAILY PRN 09/04/17 10:30 Fentanyl Citrate (Fentanyl 2ml Vial) 50 mcg PRN Q2HR PRN 09/04/17 00:30 09/05/17 00:29 09/04/17 13:19 50 MCG Glimepiride (Amaryl) 4 mg DAILY 09/04/17 11:00 Guaifenesin (Mucinex) 600 mg DAILY 09/04/17 11:00 Hydralazine HCl (Apresoline Inj) 10 mg PRN Q4HRS PRN 09/04/17 10:30 Levothyroxine Sodium (Synthroid) 100 mcg DAILY07 09/05/17 09:00 Lidocaine (Lidoderm) 1 patch DAILY 09/04/17 11:00 Magnesium Oxide (Magnesium Oxide) 400 mg DAILY 09/04/17 11:00 Non-Formulary Medication 2 puff PRN Q6HRS PRN 09/04/17 10:30 09/04/17 11:43 DC Ondansetron HCl (Zofran) 4 mg PRN Q6HRS PRN 09/04/17 10:30 Pantoprazole Sodium (Protonix) 40 mg DAILY 09/04/17 11:30 Pramipexole Dihydrochloride (miraPEX) 0.25 mg QHS 09/04/17 21:00 Silver Sulfadiazine (Silvadene) 1 beena DAILY 09/04/17 11:00 Sodium Chloride 1,000 ml @ 125 mls/hr 1X ONCE 09/04/17 00:30 09/04/17 08:29 DC 09/04/17 02:20 125 MLS/HR Sucralfate (Carafate) 1 gm QIDACHS 09/04/17 11:30 Tramadol HCl (Ultram) 50 mg PRN Q6HRS PRN 09/04/17 10:30 Allergies Allergies Allergies Coded Allergies Type Severity Reaction Last Updated Verified codeine Allergy Intermediate Nausea and Vomiting 02/16/17 Yes morphine Allergy Intermediate Nausea and Vomiting 02/16/17 Yes Fkcobow-Wjo-Pyn Reductase Inhibitor Adverse Reaction Unknown 09/04/17 Yes ROS Review of System CONSTITUTIONAL: No fever or chills EYES: No recent changes SKIN: No rash or itching CARDIOVASCULAR: No chest pain, syncope, palpitations, or edema RESPIRATORY: No SOB or cough GASTROINTESTINAL: No nausea, vomiting or abdominal pain NEUROLOGICAL: No headaches or weakness ENDOCRINE: No cold or heat intolerance GENITOURINARY: No urgency or frequency of urination MUSCULOSKELETAL: No back pain or joint pain LYMPHATICS: No enlarged lymph nodes PSYCHIATRIC: No anxiety or depression Physical Exam Physical Exam GEN.: No apparent distress. Alert and oriented. HEENT: Head is normocephalic, atraumatic NECK: Supple. LUNGS: Clear to auscultation. HEART: RRR, S1, S2 present. Peripheral pulses intact ABDOMEN: Soft, Positive bowel sounds. a big middle abd ventral hernia noticed about 4x 7cm, reducible, no redness, + tenderness EXTREMITIES: Without any cyanosis. very sensitive to touch, gentle touch coz severe pain. NEUROLOGIC: Normal speech, normal tone PSYCHIATRIC: Normal affect, normal mood. SKIN: No ulcerations Vitals Vitals Vital Signs Date Time Temp Pulse Resp B/P (MAP) Pulse Ox O2 Delivery O2 Flow Rate FiO2 09/04/17 13:19 20 95 Room Air 09/04/17 11:00 97.5 75 162/61 (94) 97.5 Labs Labs Laboratory Tests Test 09/03/17 00:05 09/03/17 21:50 09/04/17 08:12 09/04/17 11:34 Urine Collection Type Unknown Urine Color Yellow Urine Clarity Clear Urine pH 6.5 Urine Specific [place] 1.010 Urine Protein Negative mg/dL (NEG-TRACE) Urine Glucose (UA) Negative mg/dL (NEG) Urine Ketones (Stick) Negative mg/dL (NEG) Urine Blood Negative (NEG) Urine Nitrite Negative (NEG) Urine Bilirubin Negative (NEG) Urine Urobilinogen Dipstick 0.2 mg/dL (0.2 mg/dL) Urine Leukocyte Esterase Negative (NEG) Urine RBC 0 /HPF (0-2) Urine WBC 1-4 /HPF (0-4) Urine Squamous Epithelial Cells Mod /LPF Urine Bacteria Moderate /HPF (0-FEW) Urine Hyaline Casts Moderate /HPF Urine Mucus Mod /LPF White Blood Count 14.8 x10^3/uL (4.0-11.0) Red Blood Count 4.67 x10^6/uL (3.50-5.40) Hemoglobin 14.6 g/dL (12.0-15.5) Hematocrit 43.8 % (36.0-47.0) Mean Corpuscular Volume 94 fL (79-100) Mean Corpuscular Hemoglobin 31 pg (25-35) Mean Corpuscular Hemoglobin Concent 33 g/dL (31-37) Red Cell Distribution Width 13.8 % (11.5-14.5) Platelet Count 186 x10^3/uL (140-400) Neutrophils (%) (Auto) 81 % (31-73) Lymphocytes (%) (Auto) 13 % (24-48) Monocytes (%) (Auto) 5 % (0-9) Eosinophils (%) (Auto) 1 % (0-3) Basophils (%) (Auto) 1 % (0-3) Neutrophils # (Auto) 11.9 x10^3uL (1.8-7.7) Lymphocytes # (Auto) 1.9 x10^3/uL (1.0-4.8) Monocytes # (Auto) 0.7 x10^3/uL (0.0-1.1) Eosinophils # (Auto) 0.2 x10^3/uL (0.0-0.7) Basophils # (Auto) 0.1 x10^3/uL (0.0-0.2) Sodium Level 141 mmol/L (136-145) Potassium Level 4.3 mmol/L (3.5-5.1) Chloride Level 103 mmol/L (98-107) Carbon Dioxide Level 28 mmol/L (21-32) Anion Gap 10 (6-14) Blood Urea Nitrogen 27 mg/dL (7-20) Creatinine 1.6 mg/dL (0.6-1.0) Estimated GFR (Cockcroft-Gault) 31.1 BUN/Creatinine Ratio 17 (6-20) Glucose Level 147 mg/dL (70-99) Calcium Level 9.6 mg/dL (8.5-10.1) Total Bilirubin 0.4 mg/dL (0.2-1.0) Aspartate Amino Transf (AST/SGOT) 31 U/L (15-37) Alanine Aminotransferase (ALT/SGPT) 26 U/L (14-59) Alkaline Phosphatase 100 U/L (46-116) Creatine Kinase 122 U/L (26-192) Creatine Kinase MB (Mass) 1.0 ng/mL (0.0-3.6) Creatine Kinase MB Relative Index 0.8 % (0-4) Troponin I Quantitative < 0.017 ng/mL (0.000-0.055) Total Protein 9.5 g/dL (6.4-8.2) Albumin 4.0 g/dL (3.4-5.0) Albumin/Globulin Ratio 0.7 (1.0-1.7) Lipase 110 U/L (73-393) Glucose (Fingerstick) 92 mg/dL (70-99) 93 mg/dL (70-99) Laboratory Tests Test 09/03/17 21:50 09/04/17 08:12 09/04/17 11:34 White Blood Count 14.8 x10^3/uL (4.0-11.0) Red Blood Count 4.67 x10^6/uL (3.50-5.40) Hemoglobin 14.6 g/dL (12.0-15.5) Hematocrit 43.8 % (36.0-47.0) Mean Corpuscular Volume 94 fL (79-100) Mean Corpuscular Hemoglobin 31 pg (25-35) Mean Corpuscular Hemoglobin Concent 33 g/dL (31-37) Red Cell Distribution Width 13.8 % (11.5-14.5) Platelet Count 186 x10^3/uL (140-400) Neutrophils (%) (Auto) 81 % (31-73) Lymphocytes (%) (Auto) 13 % (24-48) Monocytes (%) (Auto) 5 % (0-9) Eosinophils (%) (Auto) 1 % (0-3) Basophils (%) (Auto) 1 % (0-3) Neutrophils # (Auto) 11.9 x10^3uL (1.8-7.7) Lymphocytes # (Auto) 1.9 x10^3/uL (1.0-4.8) Monocytes # (Auto) 0.7 x10^3/uL (0.0-1.1) Eosinophils # (Auto) 0.2 x10^3/uL (0.0-0.7) Basophils # (Auto) 0.1 x10^3/uL (0.0-0.2) Sodium Level 141 mmol/L (136-145) Potassium Level 4.3 mmol/L (3.5-5.1) Chloride Level 103 mmol/L (98-107) Carbon Dioxide Level 28 mmol/L (21-32) Anion Gap 10 (6-14) Blood Urea Nitrogen 27 mg/dL (7-20) Creatinine 1.6 mg/dL (0.6-1.0) Estimated GFR (Cockcroft-Gault) 31.1 BUN/Creatinine Ratio 17 (6-20) Glucose Level 147 mg/dL (70-99) Calcium Level 9.6 mg/dL (8.5-10.1) Total Bilirubin 0.4 mg/dL (0.2-1.0) Aspartate Amino Transf (AST/SGOT) 31 U/L (15-37) Alanine Aminotransferase (ALT/SGPT) 26 U/L (14-59) Alkaline Phosphatase 100 U/L (46-116) Creatine Kinase 122 U/L (26-192) Creatine Kinase MB (Mass) 1.0 ng/mL (0.0-3.6) Creatine Kinase MB Relative Index 0.8 % (0-4) Troponin I Quantitative < 0.017 ng/mL (0.000-0.055) Total Protein 9.5 g/dL (6.4-8.2) Albumin 4.0 g/dL (3.4-5.0) Albumin/Globulin Ratio 0.7 (1.0-1.7) Lipase 110 U/L (73-393) Glucose (Fingerstick) 92 mg/dL (70-99) 93 mg/dL (70-99) VTE Prophylaxis Ordered VTE Prophylaxis Devices: YesContraindicated VTE Pharmacological Prophylaxi: Yes Assessment/Plan Assessment/Plan abd pain, 2/2 ventral hernia h/o upper abd hernia wo change , not repaired dm2 htn copd morbid obesity CKD3 plan: sx consult pt not sure if she wants sx till talking to her PCP dr[facility] meds npo for now, ivf if no sx, can do clear liquid diet gi, dvt ppx ssi SAGRARIO WONG MD Sep 04, 2017 13:39
--- NOTE | 2017-09-04 13:48 | PDOC2 ---
MESERET KAPADIA [employer]ER COVERSTITCH 09/04/17 1348: CONSULT Date of Consult Date of Consult DATE: 09/04/17 TIME: 13:41 Reason for Consult Reason for Consult: ventral hernia Referring Physician Referring Physician: ER Identification/Chief Complaint Chief Complaint abdominal pain, vomiting Problems: Source Source: Chart review, Patient History of Present Illness Reason for Visit: Admitted with severe supraumbilical abdominal pain and emesis. Pain was at hernia site/swelling--reports she just noticed this yesterday, although has had a hernia above that for some time, per her report. Denies any diarrhea, no sick contacts. No further emesis. Does report some pain to site, mainly with laughing. She is very hungry Past Medical History Cardiovascular: HTN Pulmonary: COPD Endocrine: Diabetes Past Surgical History Past Surgical History: Cholecystectomy, Hysterectomy Family History Family History: Hypertension Social History Quit ALCOHOL: social Drugs: None Lives: Alone Current Problem List Problem List Problems Medical Problems: (1) Abdominal pain Status: Acute (2) Hernia of abdominal cavity Status: Acute Current Medications Current Medications Current Medications Sodium Chloride 1,000 ml @ 1,000 mls/hr Q1H IV Last administered on 22:48; Start 09/03/17 at 22:15; Stop 09/03/17 at 23:14; Status DC Ondansetron HCl (Zofran) 4 mg 1X ONCE IV ; Start 09/03/17 at 22:15; Stop at 22:16; Status DC Ondansetron HCl (Zofran) 4 mg 1X ONCE IV Last administered on 09/03/17 23:28 ; Start 09/03/17 at 23:30; Stop 09/03/17 at 23:31; Status DC Ondansetron HCl (Zofran) 4 mg PRN Q8HRS PRN IV NAUSEA/VOMITING Last administered on 09/04/17 02:51; Start 09/04/17 at 00:30; Stop 09/05/17 at 00 :29 Fentanyl Citrate (Fentanyl 2ml Vial) 50 mcg PRN Q2HR PRN IV PAIN Last administered on 09/04/17 13:19; Start 09/04/17 at 00:30; Stop 09/05/17 at 00 :29 Sodium Chloride 1,000 ml @ 125 mls/hr 1X ONCE IV Last administered on 10/24/ 17at 02:20; Start 09/04/17 at 00:30; Stop 09/04/17 at 08:29; Status DC Allopurinol (Zyloprim) 300 mg DAILY PO ; Start 09/04/17 at 11:00 Aspirin (Children'S Aspirin) 81 mg DAILY PO ; Start 09/04/17 at 11:00 Docusate Sodium (Colace) 100 mg BID PO ; Start 09/04/17 at 11:00 Guaifenesin (Mucinex) 600 mg DAILY PO ; Start 09/04/17 at 11:00 Levothyroxine Sodium (Synthroid) 100 mcg DAILY07 PO ; Start 09/05/17 at 09:00 Lidocaine (Lidoderm) 1 patch DAILY TP ; Start 09/04/17 at 11:00 Pantoprazole Sodium (Protonix) 40 mg DAILY PO ; Start 09/04/17 at 11:30; Stop 09/04/17 at 13:39; Status DC Pramipexole Dihydrochloride (miraPEX) 0.25 mg QHS PO ; Start 09/04/17 at 21:00 Silver Sulfadiazine (Silvadene) 1 radames DAILY TP ; Start 09/04/17 at 11:00 Sucralfate (Carafate) 1 gm QIDACHS PO ; Start 09/04/17 at 11:30 Non-Formulary Medication 2 puff BID IH ; Start 09/04/17 at 21:00; Stop at 21:00; Status DC Non-Formulary Medication 2 puff PRN Q6HRS PRN INH SHORTNESS OF BREATH; Start 09/04/17 at 10:30; Stop 09/04/17 at 11:43; Status DC Alprazolam (Xanax) 0.5 mg BID PO ; Start 09/04/17 at 10:45 Calcium/Vitamin D (Oscal D 500mg/ 200uts) 1 tab MoWeFr PO ; Start 09/05/17 at 09:00 Glimepiride (Amaryl) 4 mg DAILY PO ; Start 09/04/17 at 11:00 Magnesium Oxide (Magnesium Oxide) 400 mg DAILY PO ; Start 09/04/17 at 11:00 Acetaminophen (Tylenol) 650 mg PRN Q6HRS PRN PO FEVER; Start 09/04/17 at 10:30 Ondansetron HCl (Zofran) 4 mg PRN Q6HRS PRN IV NAUSEA/VOMITING; Start at 10:30 Tramadol HCl (Ultram) 50 mg PRN Q6HRS PRN PO PAIN; Start 09/04/17 at 10:30 Hydralazine HCl (Apresoline Inj) 10 mg PRN Q4HRS PRN IVP ELEVATED BP, SEE COMMENTS; Start 09/04/17 at 10:30 Docusate Sodium (Colace) 100 mg PRN DAILY PRN PO CONSTIPATION; Start 09/04/17 at 10:30 Albuterol/ Ipratropium (Duoneb) 3 ml RTQID NEB ; Start 09/04/17 at 12:00 Albuterol Sulfate (Ventolin Neb Soln) 2.5 mg PRN Q6HRS PRN NEB SHORTNESS OF BREATH; Start 09/04/17 at 11:45 Insulin Aspart (NovoLOG) 0-9 UNITS TIDWMEALS SQ ; Start 09/04/17 at 17:00 Dextrose (Dextrose 50%-Water Syringe) 12.5 gm PRN Q15MIN PRN IV SEE COMMENTS; Start 09/04/17 at 13:30 Sodium Chloride 1,000 ml @ 75 mls/hr [id number] IV ; Start 09/04/17 at 13:30 Heparin Sodium (Porcine) (Heparin Sq) 5,000 unit Q8HRS SQ ; Start 09/04/17 at 14:00 Famotidine (Pepcid) 20 mg QHS IVP ; Start 09/04/17 at 21:00; Status UNV Active Scripts Active Colace (Docusate Sodium) 100 Mg Capsule 100 Mg PO BID Reported Clotrimazole-Betamethasone Crm (Clotrimazole/Betamethasone Dip) 15 Gm Cream..g. 1 Radames TP BID Diovan (Valsartan) 80 Mg Tablet 80 Mg PO DAILY Hydrocortisone 453.6 Gm Cream..g. 1 Radames TP BID Formula 3 (Tolnaftate) 15 Ml Solution 15 Ml TP Mirapex (Pramipexole Di-Hcl) 0.25 Mg Tablet 1 Tab PO QHS Magnesium (Magnesium Oxide) 500 Mg Capsule 500 Mg PO BID Mucinex (Guaifenesin) 600 Mg Tablet.er 600 Mg PO DAILY Zyrtec (Cetirizine Hcl) 10 Mg Tablet 10 Mg PO Calcium 600 + Vit D 200 Tablet (Calcium Carbonate/Vitamin D3) 1 Each Tablet 1 Each PO QMWF Silvadene (Silver Sulfadiazine) 20 Gm Cream..g. 1 Radames TP DAILY Lidoderm (Lidocaine) 700 Mg Adh..patch 1 Patch TP DAILY Proair Hfa Inhaler (Albuterol Sulfate) 8.5 Gm Hfa.aer.ad 2 Puff INH PRN Q6HRS PRN Tudorza Pressair (Aclidinium Casey) 400 Mcg Aer.pow.ba 2 Puff IH BID Pantoprazole Sodium 40 Mg Tablet.dr 40 Mg PO DAILY Glimepiride 4 Mg Tablet 1 Tab PO HS Levothyroxine Sodium 100 Mcg Tablet 1 Tab PO DAILY Aspirin 81 Mg Tab.chew 1 Tab PO HS Tramadol Hcl 50 Mg Tablet 1-2 Tab PO BID Sucralfate 1 Gm Tablet 1 Gm PO QIDACHS Alprazolam 0.5 Mg Tab.rapdis 0.5 Mg PO DAILY Allergies Allergies: Coded Allergies: codeine (Verified Allergy, Intermediate, Nausea and Vomiting, 02/16/17) morphine (Verified Allergy, Intermediate, Nausea and Vomiting, 02/16/17) Mjagadi-Xlh-Pby Reductase Inhibitor (Verified Adverse Reaction, Unknown, 09/04/17) ROS General: No: Chills, Other (fevers) PSYCHOLOGICAL ROS: No: Anxiety, Depression Eyes: No Blurry vision, No Double vision HEENT: No: Heacaches, Sore Throat Hematological and Lymphatic: No: Bleeding Problems, Blood Clots Respiratory: YES: Cough, Shortness of breath Cardiovascular: yes Chest Pain, No Palpitations Gastrointestinal: Yes Other (see hpi) Genitourinary: No Dysuria, No Hematuria Musculoskeletal: Yes Joint Pain, Yes Muscle Pain (legs) Neurological: No Confusion, No Impaired Coord/balance Skin: Yes Rash, No Pruritus Physical Exam General: Alert, Oriented X3, Cooperative, No acute distress HEENT: PERRLA, Mucous membr. moist/pink Lungs: Clear to auscultation, Normal air movement Heart: Regular rate, Normal S1, Normal S2, No murmurs Abdomen: Soft, Other (ND, obese abdomen, hernia palpable, tender to touch, partially reducible, immediately returns ) Extremities: No clubbing, No cyanosis, Other (sensitive to LE touch ) Skin: No rashes, No breakdown Neuro: Normal speech, Normal tone Psych/Mental Status: Mental status NL, Mood NL Vitals VITALS Vital Signs Date Time Temp Pulse Resp B/P (MAP) Pulse Ox O2 Delivery O2 Flow Rate FiO2 09/04/17 13:37 95 Room Air 09/04/17 13:19 20 09/04/17 11:00 97.5 75 162/61 (94) 97.5 Labs Labs Laboratory Tests Test 09/03/17 00:05 09/03/17 21:50 09/04/17 08:12 09/04/17 11:34 Urine Collection Type Unknown Urine Color Yellow Urine Clarity Clear Urine pH 6.5 Urine Specific Elfrida 1.010 Urine Protein Negative mg/dL (NEG-TRACE) Urine Glucose (UA) Negative mg/dL (NEG) Urine Ketones (Stick) Negative mg/dL (NEG) Urine Blood Negative (NEG) Urine Nitrite Negative (NEG) Urine Bilirubin Negative (NEG) Urine Urobilinogen Dipstick 0.2 mg/dL (0.2 mg/dL) Urine Leukocyte Esterase Negative (NEG) Urine RBC 0 /HPF (0-2) Urine WBC 1-4 /HPF (0-4) Urine Squamous Epithelial Cells Mod /LPF Urine Bacteria Moderate /HPF (0-FEW) Urine Hyaline Casts Moderate /HPF Urine Mucus Mod /LPF White Blood Count 14.8 x10^3/uL (4.0-11.0) Red Blood Count 4.67 x10^6/uL (3.50-5.40) Hemoglobin 14.6 g/dL (12.0-15.5) Hematocrit 43.8 % (36.0-47.0) Mean Corpuscular Volume 94 fL (79-100) Mean Corpuscular Hemoglobin 31 pg (25-35) Mean Corpuscular Hemoglobin Concent 33 g/dL (31-37) Red Cell Distribution Width 13.8 % (11.5-14.5) Platelet Count 186 x10^3/uL (140-400) Neutrophils (%) (Auto) 81 % (31-73) Lymphocytes (%) (Auto) 13 % (24-48) Monocytes (%) (Auto) 5 % (0-9) Eosinophils (%) (Auto) 1 % (0-3) Basophils (%) (Auto) 1 % (0-3) Neutrophils # (Auto) 11.9 x10^3uL (1.8-7.7) Lymphocytes # (Auto) 1.9 x10^3/uL (1.0-4.8) Monocytes # (Auto) 0.7 x10^3/uL (0.0-1.1) Eosinophils # (Auto) 0.2 x10^3/uL (0.0-0.7) Basophils # (Auto) 0.1 x10^3/uL (0.0-0.2) Sodium Level 141 mmol/L (136-145) Potassium Level 4.3 mmol/L (3.5-5.1) Chloride Level 103 mmol/L (98-107) Carbon Dioxide Level 28 mmol/L (21-32) Anion Gap 10 (6-14) Blood Urea Nitrogen 27 mg/dL (7-20) Creatinine 1.6 mg/dL (0.6-1.0) Estimated GFR (Cockcroft-Gault) 31.1 BUN/Creatinine Ratio 17 (6-20) Glucose Level 147 mg/dL (70-99) Calcium Level 9.6 mg/dL (8.5-10.1) Total Bilirubin 0.4 mg/dL (0.2-1.0) Aspartate Amino Transf (AST/SGOT) 31 U/L (15-37) Alanine Aminotransferase (ALT/SGPT) 26 U/L (14-59) Alkaline Phosphatase 100 U/L (46-116) Creatine Kinase 122 U/L (26-192) Creatine Kinase MB (Mass) 1.0 ng/mL (0.0-3.6) Creatine Kinase MB Relative Index 0.8 % (0-4) Troponin I Quantitative < 0.017 ng/mL (0.000-0.055) Total Protein 9.5 g/dL (6.4-8.2) Albumin 4.0 g/dL (3.4-5.0) Albumin/Globulin Ratio 0.7 (1.0-1.7) Lipase 110 U/L (73-393) Glucose (Fingerstick) 92 mg/dL (70-99) 93 mg/dL (70-99) Laboratory Tests Test 09/03/17 21:50 09/04/17 08:12 09/04/17 11:34 White Blood Count 14.8 x10^3/uL (4.0-11.0) Red Blood Count 4.67 x10^6/uL (3.50-5.40) Hemoglobin 14.6 g/dL (12.0-15.5) Hematocrit 43.8 % (36.0-47.0) Mean Corpuscular Volume 94 fL (79-100) Mean Corpuscular Hemoglobin 31 pg (25-35) Mean Corpuscular Hemoglobin Concent 33 g/dL (31-37) Red Cell Distribution Width 13.8 % (11.5-14.5) Platelet Count 186 x10^3/uL (140-400) Neutrophils (%) (Auto) 81 % (31-73) Lymphocytes (%) (Auto) 13 % (24-48) Monocytes (%) (Auto) 5 % (0-9) Eosinophils (%) (Auto) 1 % (0-3) Basophils (%) (Auto) 1 % (0-3) Neutrophils # (Auto) 11.9 x10^3uL (1.8-7.7) Lymphocytes # (Auto) 1.9 x10^3/uL (1.0-4.8) Monocytes # (Auto) 0.7 x10^3/uL (0.0-1.1) Eosinophils # (Auto) 0.2 x10^3/uL (0.0-0.7) Basophils # (Auto) 0.1 x10^3/uL (0.0-0.2) Sodium Level 141 mmol/L (136-145) Potassium Level 4.3 mmol/L (3.5-5.1) Chloride Level 103 mmol/L (98-107) Carbon Dioxide Level 28 mmol/L (21-32) Anion Gap 10 (6-14) Blood Urea Nitrogen 27 mg/dL (7-20) Creatinine 1.6 mg/dL (0.6-1.0) Estimated GFR (Cockcroft-Gault) 31.1 BUN/Creatinine Ratio 17 (6-20) Glucose Level 147 mg/dL (70-99) Calcium Level 9.6 mg/dL (8.5-10.1) Total Bilirubin 0.4 mg/dL (0.2-1.0) Aspartate Amino Transf (AST/SGOT) 31 U/L (15-37) Alanine Aminotransferase (ALT/SGPT) 26 U/L (14-59) Alkaline Phosphatase 100 U/L (46-116) Creatine Kinase 122 U/L (26-192) Creatine Kinase MB (Mass) 1.0 ng/mL (0.0-3.6) Creatine Kinase MB Relative Index 0.8 % (0-4) Troponin I Quantitative < 0.017 ng/mL (0.000-0.055) Total Protein 9.5 g/dL (6.4-8.2) Albumin 4.0 g/dL (3.4-5.0) Albumin/Globulin Ratio 0.7 (1.0-1.7) Lipase 110 U/L (73-393) Glucose (Fingerstick) 92 mg/dL (70-99) 93 mg/dL (70-99) Assessment/Plan Assessment/Plan ventral hernia containing fat, can reduce, tender on exam Multiple comorbidities including obesity, HTN, COPD, DM, CKD reviewed with Dr Dodson--ok to advance diet as tolerated, if improved, ok to DC and FU in clinic to discuss hernia repair, poor surgical candidate due to comorbidities AIDA DODSON MD 09/04/17 2006: CONSULT Allergies Allergies: Coded Allergies: codeine (Verified Allergy, Intermediate, Nausea and Vomiting, 02/16/17) morphine (Verified Allergy, Intermediate, Nausea and Vomiting, 02/16/17) Zsruysf-Ecb-Oko Reductase Inhibitor (Verified Adverse Reaction, Unknown, 09/04/17) Assessment/Plan Assessment/Plan Reviewed with Ms Kapadia, agree with above; will monitor, ok to discharge if doing well and can plan elective hernia repair MESERET KAPADIA APRN Sep 04, 2017 13:48 AIDA DODSON MD Sep 04, 2017 20:06
[2017-09-04] MEDS: INSULIN ASPART 300 UNITS/3 ML INSULN.PEN SQ SCH (17:00)
[2017-09-04] MEDS: traMADol 50 MG TABLET PO PRN (17:29)
[2017-09-04] MEDS ORDERED: fentaNYL PF VIAL 100 MCG/2 ML VIAL IV PRN (19:45)
[2017-09-04] MEDS ORDERED: FAMOTIDINE 20 MG/2 ML VIAL IVP SCH (21:00)
[2017-09-04] MEDS ORDERED: ACLIDINIUM BROMIDE IH SCH (21:00)
[2017-09-04] MEDS: PRAMIPEXOLE 0.25 MG TABLET. PO SCH ×2 (21:00→23:38)
[2017-09-05 03:16] VITALS: BP 154/78
[2017-09-05 05:11] LABS: BASO % 0 % (0-3); EOS % 4 % (0-3); HEMATOCRIT 35.7 % (36.0-47.0); HEMOGLOBIN 12.2 g/dL (12.0-15.5); LYMPH # 1.5 x10^3/uL (1.0-4.8); LYMPH % 23 % (24-48); MEAN CORPUSCULAR HEMOGLOBIN 32 pg (25-35); MEAN CORPUSCULAR HGB CONC 34 g/dL (31-37); MEAN CORPUSCULAR VOLUME 94 fL (79-100); MONO % 7 % (0-9); NEUT % 66 % (31-73); PLATELET COUNT 146 x10^3/uL (140-400); RED CELL DISTRIBUTION WIDTH 13.7 % (11.5-14.5); WHITE BLOOD COUNT 6.5 x10^3/uL (4.0-11.0)
[2017-09-05 05:16] LABS: CALCIUM 8.6 mg/dL (8.5-10.1); CREATININE 1.2 mg/dL (0.6-1.0); GFR 43.3; POTASSIUM 4.2 mmol/L (3.5-5.1)
[2017-09-05] MEDS: SUCRALFATE 1 GM TABLET. PO SCH ×2 (06:02→11:25)
[2017-09-05 07:00] VITALS: BP 168/84
[2017-09-05] MEDS: INSULIN ASPART 300 UNITS/3 ML INSULN.PEN SQ SCH ×2 (07:46→12:00)
[2017-09-05] MEDS ORDERED: CALCIUM CARB/VIT D3 500/200 TABLET. PO SCH (09:00)
[2017-09-05] MEDS ORDERED: LEVOTHYROXINE 100 MCG TABLET PO SCH (09:00)
[2017-09-05] MEDS: silver sulfADIAZINE 1% CREAM 25GM TUBE. TP SCH (09:00)
[2017-09-05] MEDS: DOCUSATE SODIUM 100 MG CAPSULE. PO SCH (09:00)
[2017-09-05] MEDS: ALLOPURINOL 300 MG TABLET. PO SCH (09:00)
[2017-09-05] MEDS: LIDOCAINE (700MG/PATCH) PATCH. TP SCH (09:00)
[2017-09-05] MEDS: ALPRAZolam 0.5 MG TABLET PO SCH ×2 (09:00→13:10)
[2017-09-05] MEDS: ASPIRIN CHEWABLE 81 MG TABLET. PO SCH (09:00)
[2017-09-05] MEDS: MAGNESIUM OXIDE 400 MG TABLET PO SCH (09:00)
[2017-09-05] MEDS: GLIMEPIRIDE 2 MG TABLET. PO SCH (09:00)
--- NOTE | 2017-09-05 10:29 | PDOC ---
PROGRESS NOTES Subjective Subjective doing fine, no pain Objective Objective Vital Signs Date Time Temp Pulse Resp B/P (MAP) Pulse Ox O2 Delivery O2 Flow Rate FiO2 09/05/17 07:00 97.8 84 18 168/84 (112) 94 Room Air 97.8 Physical Exam Abdomen: Soft (morbidly obese, reducible supraumbilical hernia) Heart: Regular rate Extremities: No clubbing, No cyanosis General: Alert, Oriented X3 HEENT: Atraumatic Lungs: Clear to auscultation Neuro: Normal speech Psych/Mental Status: Mental status NL Assessment Assessment Problems Medical Problems: (1) Abdominal pain Status: Acute (2) Hernia of abdominal cavity Status: Acute Plan Plan of Care I discussed with the patient details for surgical repair. She would prefer to schedule as outpatient. OK to discharge, FU with me in office (around 2 weeks, ); will schedule elective hernia repair Comment Review of Relevant I have reviewed the following items byron (where applicable) has been applied. Labs Laboratory Tests Test 09/03/17 21:50 09/04/17 08:12 09/04/17 11:34 09/04/17 17:09 White Blood Count 14.8 x10^3/uL (4.0-11.0) Red Blood Count 4.67 x10^6/uL (3.50-5.40) Hemoglobin 14.6 g/dL (12.0-15.5) Hematocrit 43.8 % (36.0-47.0) Mean Corpuscular Volume 94 fL (79-100) Mean Corpuscular Hemoglobin 31 pg (25-35) Mean Corpuscular Hemoglobin Concent 33 g/dL (31-37) Red Cell Distribution Width 13.8 % (11.5-14.5) Platelet Count 186 x10^3/uL (140-400) Neutrophils (%) (Auto) 81 % (31-73) Lymphocytes (%) (Auto) 13 % (24-48) Monocytes (%) (Auto) 5 % (0-9) Eosinophils (%) (Auto) 1 % (0-3) Basophils (%) (Auto) 1 % (0-3) Neutrophils # (Auto) 11.9 x10^3uL (1.8-7.7) Lymphocytes # (Auto) 1.9 x10^3/uL (1.0-4.8) Monocytes # (Auto) 0.7 x10^3/uL (0.0-1.1) Eosinophils # (Auto) 0.2 x10^3/uL (0.0-0.7) Basophils # (Auto) 0.1 x10^3/uL (0.0-0.2) Sodium Level 141 mmol/L (136-145) Potassium Level 4.3 mmol/L (3.5-5.1) Chloride Level 103 mmol/L (98-107) Carbon Dioxide Level 28 mmol/L (21-32) Anion Gap 10 (6-14) Blood Urea Nitrogen 27 mg/dL (7-20) Creatinine 1.6 mg/dL (0.6-1.0) Estimated GFR (Cockcroft-Gault) 31.1 BUN/Creatinine Ratio 17 (6-20) Glucose Level 147 mg/dL (70-99) Calcium Level 9.6 mg/dL (8.5-10.1) Total Bilirubin 0.4 mg/dL (0.2-1.0) Aspartate Amino Transf (AST/SGOT) 31 U/L (15-37) Alanine Aminotransferase (ALT/SGPT) 26 U/L (14-59) Alkaline Phosphatase 100 U/L (46-116) Creatine Kinase 122 U/L (26-192) Creatine Kinase MB (Mass) 1.0 ng/mL (0.0-3.6) Creatine Kinase MB Relative Index 0.8 % (0-4) Troponin I Quantitative < 0.017 ng/mL (0.000-0.055) Total Protein 9.5 g/dL (6.4-8.2) Albumin 4.0 g/dL (3.4-5.0) Albumin/Globulin Ratio 0.7 (1.0-1.7) Lipase 110 U/L (73-393) Glucose (Fingerstick) 92 mg/dL (70-99) 93 mg/dL (70-99) 126 mg/dL (70-99) Test 09/04/17 18:28 09/04/17 22:18 09/05/17 03:55 09/05/17 07:35 Glucose (Fingerstick) 115 mg/dL (70-99) 99 mg/dL (70-99) 96 mg/dL (70-99) White Blood Count 6.5 x10^3/uL (4.0-11.0) Red Blood Count 3.80 x10^6/uL (3.50-5.40) Hemoglobin 12.2 g/dL (12.0-15.5) Hematocrit 35.7 % (36.0-47.0) Mean Corpuscular Volume 94 fL (79-100) Mean Corpuscular Hemoglobin 32 pg (25-35) Mean Corpuscular Hemoglobin Concent 34 g/dL (31-37) Red Cell Distribution Width 13.7 % (11.5-14.5) Platelet Count 146 x10^3/uL (140-400) Neutrophils (%) (Auto) 66 % (31-73) Lymphocytes (%) (Auto) 23 % (24-48) Monocytes (%) (Auto) 7 % (0-9) Eosinophils (%) (Auto) 4 % (0-3) Basophils (%) (Auto) 0 % (0-3) Neutrophils # (Auto) 4.3 x10^3uL (1.8-7.7) Lymphocytes # (Auto) 1.5 x10^3/uL (1.0-4.8) Monocytes # (Auto) 0.5 x10^3/uL (0.0-1.1) Eosinophils # (Auto) 0.2 x10^3/uL (0.0-0.7) Basophils # (Auto) 0.0 x10^3/uL (0.0-0.2) Sodium Level 146 mmol/L (136-145) Potassium Level 4.2 mmol/L (3.5-5.1) Chloride Level 111 mmol/L (98-107) Carbon Dioxide Level 27 mmol/L (21-32) Anion Gap 8 (6-14) Blood Urea Nitrogen 18 mg/dL (7-20) Creatinine 1.2 mg/dL (0.6-1.0) Estimated GFR (Cockcroft-Gault) 43.3 Glucose Level 87 mg/dL (70-99) Calcium Level 8.6 mg/dL (8.5-10.1) Laboratory Tests Test 09/04/17 11:34 09/04/17 17:09 09/04/17 18:28 09/04/17 22:18 Glucose (Fingerstick) 93 mg/dL (70-99) 126 mg/dL (70-99) 115 mg/dL (70-99) 99 mg/dL (70-99) Test 09/05/17 03:55 09/05/17 07:35 White Blood Count 6.5 x10^3/uL (4.0-11.0) Red Blood Count 3.80 x10^6/uL (3.50-5.40) Hemoglobin 12.2 g/dL (12.0-15.5) Hematocrit 35.7 % (36.0-47.0) Mean Corpuscular Volume 94 fL (79-100) Mean Corpuscular Hemoglobin 32 pg (25-35) Mean Corpuscular Hemoglobin Concent 34 g/dL (31-37) Red Cell Distribution Width 13.7 % (11.5-14.5) Platelet Count 146 x10^3/uL (140-400) Neutrophils (%) (Auto) 66 % (31-73) Lymphocytes (%) (Auto) 23 % (24-48) Monocytes (%) (Auto) 7 % (0-9) Eosinophils (%) (Auto) 4 % (0-3) Basophils (%) (Auto) 0 % (0-3) Neutrophils # (Auto) 4.3 x10^3uL (1.8-7.7) Lymphocytes # (Auto) 1.5 x10^3/uL (1.0-4.8) Monocytes # (Auto) 0.5 x10^3/uL (0.0-1.1) Eosinophils # (Auto) 0.2 x10^3/uL (0.0-0.7) Basophils # (Auto) 0.0 x10^3/uL (0.0-0.2) Sodium Level 146 mmol/L (136-145) Potassium Level 4.2 mmol/L (3.5-5.1) Chloride Level 111 mmol/L (98-107) Carbon Dioxide Level 27 mmol/L (21-32) Anion Gap 8 (6-14) Blood Urea Nitrogen 18 mg/dL (7-20) Creatinine 1.2 mg/dL (0.6-1.0) Estimated GFR (Cockcroft-Gault) 43.3 Glucose Level 87 mg/dL (70-99) Calcium Level 8.6 mg/dL (8.5-10.1) Glucose (Fingerstick) 96 mg/dL (70-99) Medications Current Medications Sodium Chloride 1,000 ml @ 1,000 mls/hr Q1H IV Last administered on 22:48; Start 09/03/17 at 22:15; Stop 09/03/17 at 23:14; Status DC Ondansetron HCl (Zofran) 4 mg 1X ONCE IV ; Start 09/03/17 at 22:15; Stop at 22:16; Status DC Ondansetron HCl (Zofran) 4 mg 1X ONCE IV Last administered on 09/03/17 23:28 ; Start 09/03/17 at 23:30; Stop 09/03/17 at 23:31; Status DC Ondansetron HCl (Zofran) 4 mg PRN Q8HRS PRN IV NAUSEA/VOMITING Last administered on 09/04/17 02:51; Start 09/04/17 at 00:30; Stop 09/05/17 at 00 :29; Status DC Fentanyl Citrate (Fentanyl 2ml Vial) 50 mcg PRN Q2HR PRN IV PAIN Last administered on 09/04/17 13:19; Start 09/04/17 at 00:30; Stop 09/05/17 at 00 :29; Status DC Sodium Chloride 1,000 ml @ 125 mls/hr 1X ONCE IV Last administered on 02:20; Start 09/04/17 at 00:30; Stop 09/04/17 at 08:29; Status DC Allopurinol (Zyloprim) 300 mg DAILY PO ; Start 09/04/17 at 11:00 Aspirin (Children'S Aspirin) 81 mg DAILY PO ; Start 09/04/17 at 11:00 Docusate Sodium (Colace) 100 mg BID PO ; Start 09/04/17 at 11:00 Guaifenesin (Mucinex) 600 mg DAILY PO ; Start 09/04/17 at 11:00 Levothyroxine Sodium (Synthroid) 100 mcg DAILY07 PO ; Start 09/05/17 at 09:00 Lidocaine (Lidoderm) 1 patch DAILY TP ; Start 09/04/17 at 11:00 Pantoprazole Sodium (Protonix) 40 mg DAILY PO ; Start 09/04/17 at 11:30; Stop 09/04/17 at 13:39; Status DC Pramipexole Dihydrochloride (miraPEX) 0.25 mg QHS PO Last administered on 09/04 23:38; Start 09/04/17 at 21:00 Silver Sulfadiazine (Silvadene) 1 radames DAILY TP ; Start 09/04/17 at 11:00 Sucralfate (Carafate) 1 gm QIDACHS PO Last administered on 09/04/17 21:14; Start 09/04/17 at 11:30 Non-Formulary Medication 2 puff BID IH ; Start 09/04/17 at 21:00; Stop at 21:00; Status DC Non-Formulary Medication 2 puff PRN Q6HRS PRN INH SHORTNESS OF BREATH; Start 09/04/17 at 10:30; Stop 09/04/17 at 11:43; Status DC Alprazolam (Xanax) 0.5 mg BID PO ; Start 09/04/17 at 10:45 Calcium/Vitamin D (Oscal D 500mg/ 200uts) 1 tab MoWeFr PO ; Start 09/05/17 at 09:00 Glimepiride (Amaryl) 4 mg DAILY PO ; Start 09/04/17 at 11:00 Magnesium Oxide (Magnesium Oxide) 400 mg DAILY PO ; Start 09/04/17 at 11:00 Acetaminophen (Tylenol) 650 mg PRN Q6HRS PRN PO FEVER; Start 09/04/17 at 10:30 Ondansetron HCl (Zofran) 4 mg PRN Q6HRS PRN IV NAUSEA/VOMITING Last administered on 09/04/17 22:33; Start 09/04/17 at 10:30 Tramadol HCl (Ultram) 50 mg PRN Q6HRS PRN PO PAIN Last administered on 17:29; Start 09/04/17 at 10:30 Hydralazine HCl (Apresoline Inj) 10 mg PRN Q4HRS PRN IVP ELEVATED BP, SEE COMMENTS Last administered on 09/04/17 18:36; Start 09/04/17 at 10:30 Docusate Sodium (Colace) 100 mg PRN DAILY PRN PO CONSTIPATION; Start 09/04/17 at 10:30 Albuterol/ Ipratropium (Duoneb) 3 ml RTQID NEB ; Start 09/04/17 at 12:00; Stop 09/04/17 at 15:30; Status DC Albuterol Sulfate (Ventolin Neb Soln) 2.5 mg PRN Q6HRS PRN NEB SHORTNESS OF BREATH; Start 09/04/17 at 11:45 Insulin Aspart (NovoLOG) 0-9 UNITS TIDWMEALS SQ ; Start 09/04/17 at 17:00 Dextrose (Dextrose 50%-Water Syringe) 12.5 gm PRN Q15MIN PRN IV SEE COMMENTS; Start 09/04/17 at 13:30 Sodium Chloride 1,000 ml @ 75 mls/hr [id number] IV Last administered on t 21:21; Start 09/04/17 at 13:30 Heparin Sodium (Porcine) (Heparin Sq) 5,000 unit Q8HRS SQ ; Start 09/04/17 at 14:00 Famotidine (Pepcid) 20 mg QHS IVP Last administered on 09/04/17 21:17; Start 09/04/17 at 21:00 Fentanyl Citrate (Fentanyl 2ml Vial) 50 mcg PRN Q2HR PRN IV PAIN; Start at 19:45 Active Scripts Active Colace (Docusate Sodium) 100 Mg Capsule 100 Mg PO BID Reported Clotrimazole-Betamethasone Crm (Clotrimazole/Betamethasone Dip) 15 Gm Cream..g. 1 Radames TP BID Diovan (Valsartan) 80 Mg Tablet 80 Mg PO DAILY Hydrocortisone 453.6 Gm Cream..g. 1 Radames TP BID Formula 3 (Tolnaftate) 15 Ml Solution 15 Ml TP Mirapex (Pramipexole Di-Hcl) 0.25 Mg Tablet 1 Tab PO QHS Magnesium (Magnesium Oxide) 500 Mg Capsule 500 Mg PO BID Mucinex (Guaifenesin) 600 Mg Tablet.er 600 Mg PO DAILY Zyrtec (Cetirizine Hcl) 10 Mg Tablet 10 Mg PO Calcium 600 + Vit D 200 Tablet (Calcium Carbonate/Vitamin D3) 1 Each Tablet 1 Each PO QMWF Silvadene (Silver Sulfadiazine) 20 Gm Cream..g. 1 Radames TP DAILY Lidoderm (Lidocaine) 700 Mg Adh..patch 1 Patch TP DAILY Proair Hfa Inhaler (Albuterol Sulfate) 8.5 Gm Hfa.aer.ad 2 Puff INH PRN Q6HRS PRN Tudorza Pressair (Aclidinium [place]) 400 Mcg Aer.pow.ba 2 Puff IH BID Pantoprazole Sodium 40 Mg Tablet.dr 40 Mg PO DAILY Glimepiride 4 Mg Tablet 1 Tab PO HS Levothyroxine Sodium 100 Mcg Tablet 1 Tab PO DAILY Aspirin 81 Mg Tab.chew 1 Tab PO HS Tramadol Hcl 50 Mg Tablet 1-2 Tab PO BID Sucralfate 1 Gm Tablet 1 Gm PO QIDACHS Alprazolam 0.5 Mg Tab.rapdis 0.5 Mg PO DAILY Vitals/I & O Vital Sign - Last 24 Hours 09/04/17 09/04/17 09/04/17 09/04/17 11:00 13:19 13:37 15:00 Temp 97.5 97.9 97.5 97.9 Pulse 75 68 Resp 18 20 18 B/P (MAP) 162/61 (94) 168/73 (104) Pulse Ox 95 95 95 96 O2 Delivery Room Air Room Air Room Air Room Air 09/04/17 09/04/17 09/04/17 09/04/17 17:29 18:26 18:36 19:15 Temp 98.0 98.0 Pulse 77 87 Resp 20 16 B/P (MAP) 189/79 167/77 (107) Pulse Ox 96 96 96 O2 Delivery Room Air Room Air Room Air 09/04/17 09/04/17 09/05/17 09/05/17 20:00 23:08 03:16 07:00 Temp 97.8 97.9 97.8 97.8 97.9 97.8 Pulse 90 88 84 Resp 18 18 18 B/P (MAP) 172/86 (114) 154/78 (103) 168/84 (112) Pulse Ox 95 96 94 O2 Delivery Room Air Room Air Room Air Room Air AIDA COSME MD Sep 05, 2017 10:29
[2017-09-05 11:00] VITALS: BP 180/87
[2017-09-05] MEDS ORDERED: LOSARTAN POTASSIUM 50 MG TABLET. PO SCH (12:00)
--- NOTE | 2017-09-05 12:11 | RAD ---
Portable abdomen, 09/05/2017: History: Ventral hernia The abdominal gas pattern is unremarkable. Surgical clips are present in the right upper quadrant. Scattered vascular calcifications are noted. There is no evidence of organomegaly. Moderate multilevel degenerative change is present in the spine. IMPRESSION: No acute abdominal abnormality is detected.
--- NOTE | 2017-09-05 13:05 | PDOC3 ---
Discharge Summary [facility] Date of Admission: Sep 04, 2017 Discharge Date: Sep 05, 2017 Admitting Diagnosis abd pain, 2/2 ventral hernia h/o upper abd hernia wo change , not repaired dm2 htn copd morbid obesity CKD3 EDNA, vasomotor severe bl leg neuropathy Problems: Final Diagnosis CONSULTS sx Brief Hospital Course Patient is a 77 year old female who presents with abdominal pain. Pt said she has a epigastric area hernia for years, wo pain or intervention. She started to have middle abd pain last night, 24/08, no radiation, constant, with N/V, had BM. no fever, chills, sob. has mild chronic cough. CT showed a ventral hernia 6cm wo incarceration. Pt has no abd pain when i saw her on 2nd day, + ventral hernia with tenderness. Later she got Rapid response with N/V, abd pain and presyncope. Today, no abd pain, KUB ok,ventral hernia no change. sx consulted, pt prefer outpt sx. advance diet, if eats ok, no abd pain, dc today dc time 35min. GEN.: No apparent distress. Alert and oriented. HEENT: Head is normocephalic, atraumatic NECK: Supple. LUNGS: Clear to auscultation. HEART: RRR, S1, S2 present. Peripheral pulses intact ABDOMEN: Soft, Positive bowel sounds. a big middle abd ventral hernia noticed about 4x 7cm, reducible, no redness, no tenderness EXTREMITIES: Without any cyanosis. very sensitive to touch, gentle touch coz severe pain. NEUROLOGIC: Normal speech, normal tone PSYCHIATRIC: Normal affect, normal mood. SKIN: No ulcerations Problems: Disposition home CONDITION AT DISCHARGE: Improved Diet gi soft Scheduled Aclidinium [place] (Tudorza Pressair), 2 PUFF IH BID, (Reported) Alprazolam (Alprazolam), 0.5 MG PO DAILY, (Reported) Aspirin (Aspirin), 1 TAB PO HS, (Reported) Calcium Carbonate/Vitamin D3 (Calcium 600 + Vit D 200 Tablet), 1 EACH PO QMWF, ( Reported) Clotrimazole/Betamethasone Dip (Clotrimazole-Betamethasone Crm), 1 CHARLEEN TP BID, ( Reported) Docusate Sodium (Colace), 100 MG PO BID Glimepiride (Glimepiride), 1 TAB PO HS, (Reported) Guaifenesin (Mucinex), 600 MG PO DAILY, (Reported) Hydrocortisone (Hydrocortisone), 1 CHARLEEN TP BID, (Reported) Levothyroxine Sodium (Levothyroxine Sodium), 1 TAB PO DAILY, (Reported) Lidocaine (Lidoderm), 1 PATCH TP DAILY, (Reported) Magnesium Oxide (Magnesium), 500 MG PO BID, (Reported) Pantoprazole Sodium (Pantoprazole Sodium), 40 MG PO DAILY, (Reported) Pramipexole Di-Hcl (Mirapex), 1 TAB PO QHS, (Reported) Silver Sulfadiazine (Silvadene), 1 CHARLEEN TP DAILY, (Reported) Sucralfate (Sucralfate), 1 GM PO QIDACHS, (Reported) Tramadol Hcl (Tramadol Hcl), 1-2 TAB PO BID, (Reported) Valsartan (Diovan), 80 MG PO DAILY, (Reported) Scheduled PRN Albuterol Sulfate (Proair Hfa Inhaler), 2 PUFF INH PRN Q6HRS PRN for SHORTNESS OF BREATH, (Reported) Miscellaneous Medications Cetirizine Hcl (Zyrtec), 10 MG PO, (Reported) Tolnaftate (Formula 3), 15 ML TP, (Reported) Discontinued Medications Allopurinol (Allopurinol), 300 MG PO DAILY, (Reported) Follow Up fu with sx as outpt in 2 weeks SAGRARIO WONG MD Sep 05, 2017 13:05
[2017-09-05 13:07] VITALS: BP 168/84
[2017-09-05] MEDS: traMADol 50 MG TABLET PO PRN (13:08)
== END 2017-09-05 14:00 | disposition home or self-care (01) | DRG 393 ==
LOC: ER 21:45 → 4 NORTH 09-04 00:33
PROVIDERS: ADMIT Internal Medicine; ATTEND Internal Medicine
DX: K43.9 Ventral hernia without obstruction or gangrene (principal); N17.0 Acute kidney failure with tubular necrosis; Z68.42 Body mass index [BMI] 45.0-49.9, adult; E11.22 Type 2 diabetes mellitus with diabetic chronic kidney disease; J44.9 Chronic obstructive pulmonary disease, unspecified; E66.01 Morbid (severe) obesity due to excess calories; F17.210 Nicotine dependence, cigarettes, uncomplicated; G57.90 Unspecified mononeuropathy of unspecified lower limb; I12.9 Hypertensive chronic kidney disease with stage 1 through stage 4 chronic kidney disease, or unspecified chronic kidney disease; K59.00 Constipation, unspecified; N18.3 Chronic kidney disease, stage 3 (moderate); Z82.49 Family history of ischemic heart disease and other diseases of the circulatory system; Z90.710 Acquired absence of both cervix and uterus; Z90.49 Acquired absence of other specified parts of digestive tract; Z88.8 Allergy status to other drugs, medicaments and biological substances
CPT/HCPCS: 36415; 74000; 74176; 80048; 80053; 81001; 82553; 82962; 83690; 84484; 85025; 87086; 93005; 96361; 96374; J0360; J1815; J2405; J3010; J7030; S0028; 99285-25

== ENCOUNTER 2017-10-08 10:21 | Observation (INO) | payer MEDICARE ==
[~2017-10-08] VITALS: Ht 160 cm; Wt 107.7 kg
[~2017-10-08 10:21] MED LIST changes: +CLOT15CR5 TP; +HYDR453. TP; +LIDOCAINE 1% PF 2 ML VIAL. ID PRN; +ONDANSETRON PF 4 MG/2 ML VIAL. IV PRN; +PROCHLORPERAZINE 10 MG/2 ML VIAL. IV PRN; +TIZA4TAB PO; +TOLN15SO TP; +VALS80TA3 PO; +fentaNYL PF VIAL 100 MCG/2 ML VIAL IV PRN
[2017-10-08] MEDS ORDERED: ONDANSETRON PF 4 MG/2 ML VIAL. ONE (10:56)
[2017-10-08] MEDS ORDERED: PROPOFOL 20 ML IV ONE (10:56)
[2017-10-08] MEDS ORDERED: DEXAMETHASONE SOD PHOS 20 MG/5 ML VIAL. ONE (10:56)
[2017-10-08] MEDS ORDERED: LIDOCAINE 2% PF Vial for OR 5 ML VIAL. ONE (10:56)
[2017-10-08] MEDS ORDERED: ROCURONIUM 50 MG/5 ML VIAL. ONE (10:57)
[2017-10-08] MEDS ORDERED: fentaNYL PF VIAL 100 MCG/2 ML VIAL ONE (10:57)
[2017-10-08] MEDS ORDERED: GLIM4TAB2 PO (11:26)
[2017-10-08] MEDS ORDERED: GLIM2TAB2 PO (11:26)
[2017-10-08] MEDS: IV RINGERS,LACTATED 1000ML 1,000 ML IV SCH ×2 (11:46→13:53)
[2017-10-08] MEDS ORDERED: BUPIVAC MPF-EPI 0.5%-1:200000 30 ML VIAL. ONE (13:20)
[2017-10-08] MEDS ORDERED: GLYCOPYRROLATE 1 MG/5 ML VIAL. ONE (13:25)
[2017-10-08] MEDS ORDERED: NEOSTIGMINE 10 MG/10 ML VIAL. ONE (13:25)
[2017-10-08] MEDS ORDERED: SEVOFLURANE 61 TO 120 MINUTES. IH ONE (13:33)
[2017-10-08] MEDS: IV NORMAL SALINE 1000ML BAG 1,000 ML IV SCH (13:45)
[2017-10-08] MEDS ORDERED: NON FORMULARY ITEM (Albuterol Sulfate (Proair Hfa Inhaler) 2 PUFF) INH PRN (13:45)
[2017-10-08] MEDS ORDERED: ONDANSETRON PF 4 MG/2 ML VIAL. IV PRN (13:45)
[2017-10-08] MEDS ORDERED: fentaNYL PF VIAL 100 MCG/2 ML VIAL IV PRN (13:45)
[2017-10-08] MEDS ORDERED: tiZANidine 4 MG TABLET. PO PRN (13:45)
[2017-10-08] MEDS ORDERED: traMADol 50 MG TABLET PO PRN (13:45)
[2017-10-08] MEDS ORDERED: 0.9 % SODIUM CHLORIDE 10 ML DISP.SYRIN. IV PRN (13:45)
[2017-10-08] MEDS ORDERED: IPRATRPIUM/ALBUTEROL 0.5/2.5MG 3 ML NEBU. ONE (13:46)
--- NOTE | 2017-10-08 13:47 | PDOC4 ---
Operative Note Operative Note Operative Note: Preoperative Diagnosis: Ventral hernia Postoperative Diagnosis: Same Procedure: Ventral hernia repair with mesh Surgeon: [place].: Amalia TAVERAS Anesthesia: Gen. EBL: 20 mL Specimen: None Drains: None Complications: None Indication: The patient is a 77-year-old female who is referred with a ventral hernia. She was offered surgical repair. The risks of surgery were discussed which include bleeding, infection, recurrence, pain, mesh reaction, anesthetic risk, potential need for additional surgery or procedure. She understands and would like to proceed. Description: The patient was taken to the operating room and placed supine on the operating table. Gen. anesthesia was performed. The abdomen was prepped with ChloraPrep and draped in a standard surgical manner. The hernia was located superior to the umbilicus. A vertical midline incision was made overlying the hernia defect. Cautery dissection was carried onto the fascia. The fascial defect was readily identified and there was some protuberant preperitoneal fat within a hernia sac. A preperitoneal plane was developed for placement of the mesh. The extruded preperitoneal fat was reduced. The patient did have a small umbilical hernia defect close by. The umbilical tissue was elevated off the fascia to better define this. A large Ventralex ST mesh was then placed in the preperitoneal space. The mesh provided good overlap in all directions of the hernia defect including the nearby umbilical defect. The mesh was sutured into position at the 12, 3, 6, 9:00 positions using 0 Prolene placed in a horizontal mattress fashion. The fascial edges of the hernia defect were then closed over the mesh with interrupted 0 Prolene. The umbilical tissue was secured back to the fascia with 0 Vicryl. The subcutaneous tissue was closed with interrupted 3-0 Vicryl. The skin was closed with 4-0 Monocryl. The incision was infiltrated with quarter percent Marcaine with epinephrine. Steri- Strips and a sterile dressing were applied. The patient tolerated the procedure well and was sent to the recovery room in stable condition. At the end of the case all counts were correct. AIDA COSME MD Oct 08, 2017 13:47
[2017-10-08] MEDS ORDERED: ALBUTEROL SULFATE 2.5 MG/3 ML NEBU. NEB PRN (14:00)
[2017-10-08] MEDS ORDERED: IPRATRPIUM/ALBUTEROL 0.5/2.5MG 3 ML NEBU. NEB ONE (14:00)
[2017-10-08] MEDS ORDERED: HYDROCORTISONE SOD SUCC/PF 100 MG/2 ML VIAL. ONE (14:09)
[2017-10-08] MEDS ORDERED: ALBUTEROL SULFATE 2.5 MG/3 ML NEBU. NEB ONE (14:35)
--- NOTE | 2017-10-08 14:41 | RAD ---
Chest x-ray Indication: Congestion and shortness of breath Technique: Portable AP upright chest x-ray Comparison: Previous study from 02/16/2017 Findings: Heart is top normal in size. There is prominence of the pulmonary vascularity. No focal consolidation in the lungs. No pneumothorax or pleural effusion. Visualized bony thorax within normal limits. Impression: Suggestion of pulmonary vascular congestion. Early interstitial pulmonary edema is a possibility.
[2017-10-08] MEDS: fentaNYL PF VIAL 100 MCG/2 ML VIAL IV PRN ×4 (14:46→20:32)
[2017-10-08] MEDS: MIDAZOLAM HCL/PF 2 MG/2 ML VIAL. IV PRN ×3 (14:52→16:02)
[2017-10-08] MEDS ORDERED: CALCIUM CARB/VIT D3 500/200 TABLET. PO SCH (16:00)
[2017-10-08 17:12] VITALS: BP 160/65
[2017-10-08] MEDS: SUCRALFATE 1 GM TABLET. PO SCH ×2 (17:29→21:00)
[2017-10-08 19:00] VITALS: BP 195/82
[2017-10-08] MEDS: IPRATRPIUM/ALBUTEROL 0.5/2.5MG 3 ML NEBU. NEB SCH (19:46)
[2017-10-08 20:15] VITALS: BP 171/74
[2017-10-08] MEDS: MAGNESIUM OXIDE 400 MG TABLET PO SCH (21:00)
[2017-10-08] MEDS ORDERED: ACLIDINIUM BROMIDE IH SCH (21:00)
[2017-10-08] MEDS ORDERED: ASPIRIN CHEWABLE 81 MG TABLET. PO SCH (21:00)
[2017-10-08] MEDS: CLOTRIMAZOLE/BETAMETH 1%-0.05% TOPICAL CREAM 15GM TUBE. TP SCH (21:00)
[2017-10-08] MEDS: HEPARIN PF for SUB-Q USE 5,000 UNIT/0.5 ML VIAL. SQ SCH (21:00)
[2017-10-08] MEDS: DOCUSATE SODIUM 100 MG CAPSULE. PO SCH (21:00)
[2017-10-08] MEDS ORDERED: GLIMEPIRIDE 2 MG TABLET. PO SCH (21:00)
[2017-10-08] MEDS ORDERED: PRAMIPEXOLE 0.25 MG TABLET. PO SCH (21:00)
[2017-10-08 23:00] VITALS: BP 148/79
[2017-10-09] MEDS: fentaNYL PF VIAL 100 MCG/2 ML VIAL IV PRN (00:44)
[2017-10-09 03:00] VITALS: BP 130/73
[2017-10-09] MEDS: IV NORMAL SALINE 1000ML BAG 1,000 ML IV SCH (05:09)
[2017-10-09] MEDS: IPRATRPIUM/ALBUTEROL 0.5/2.5MG 3 ML NEBU. NEB SCH ×2 (05:29→12:00)
[2017-10-09] MEDS ORDERED: LEVOTHYROXINE 100 MCG TABLET PO SCH (06:00)
[2017-10-09 07:00] VITALS: BP 170/89
[2017-10-09] MEDS ORDERED: GLIMEPIRIDE 2 MG TABLET. PO SCH (07:00)
[2017-10-09] MEDS ORDERED: PANTOPRAZOLE 40 MG TABLET.DR. PO SCH (07:30)
[2017-10-09] MEDS ORDERED: CETIRIZINE HCL 10 MG TABLET. PO SCH (09:00)
[2017-10-09] MEDS ORDERED: LOSARTAN POTASSIUM 50 MG TABLET. PO SCH (09:00)
[2017-10-09] MEDS ORDERED: ALPRAZolam 0.5 MG TABLET PO SCH (09:00)
[2017-10-09] MEDS: DOCUSATE SODIUM 100 MG CAPSULE. PO SCH (09:47)
[2017-10-09] MEDS: SUCRALFATE 1 GM TABLET. PO SCH ×2 (10:01→11:30)
[2017-10-09] MEDS: MAGNESIUM OXIDE 400 MG TABLET PO SCH (10:02)
[2017-10-09] MEDS: HEPARIN PF for SUB-Q USE 5,000 UNIT/0.5 ML VIAL. SQ SCH (10:03)
[2017-10-09] MEDS: CLOTRIMAZOLE/BETAMETH 1%-0.05% TOPICAL CREAM 15GM TUBE. TP SCH (10:03)
[2017-10-09 11:05] VITALS: BP 141/66
--- NOTE | 2017-10-09 13:06 | PDOC ---
SURGICAL PROGRESS NOTE Subjective tolerating diet pain managed urinating ready to discharge home Vital Signs Vital Signs Date Time Temp Pulse Resp B/P (MAP) Pulse Ox O2 Delivery O2 Flow Rate FiO2 10/09/17 11:05 97.0 72 18 141/66 (91) 96 Room Air 97.0 10/08/17 18:06 3.0 I&O Intake and Output 10/09/17 07:00 Intake Total 1610 ml Output Total 10 ml Balance 1600 ml Intake Oral 360 ml IV Total 1250 ml Output Estimated Blood Loss 10 ml # Voids 1 General: Alert, Oriented X3, Cooperative, No acute distress Abdomen: Soft, Other (dressing dry, binder in place) Labs Laboratory Tests Test 10/08/17 11:15 10/08/17 15:09 10/08/17 21:31 Glucose (Fingerstick) 83 mg/dL (70-99) 123 mg/dL (70-99) 245 mg/dL (70-99) Laboratory Tests Test 10/08/17 15:09 10/08/17 21:31 Glucose (Fingerstick) 123 mg/dL (70-99) 245 mg/dL (70-99) Problem List s/p VIH repair ready for DC home FU 2 weeks Problems: MESERET KAPADIA TIME CHECKER Oct 09, 2017 13:06
== END 2017-10-09 14:05 | disposition home or self-care (01) ==
LOC: SURG 10:21 → 4 NORTH 13:40
PROVIDERS: ADMIT Surgery; ATTEND Surgery
DX: K43.9 Ventral hernia without obstruction or gangrene (principal); E66.01 Morbid (severe) obesity due to excess calories; J44.9 Chronic obstructive pulmonary disease, unspecified; E11.9 Type 2 diabetes mellitus without complications
CPT/HCPCS: 49560; 49568; 49585; 71010; 82962; 94640; 96372; 96374; 96376; G0378; G0379; J0690; J1100; J1720; J2250; J2405; J2704; J2710; J3010; J3490; J7120; J7613; J7620; J2001

== ENCOUNTER → 2017-11-28 | Outpatient (CLI) | payer MEDICARE | END | disposition home or self-care (01) | LOC: US 14:13 | DX: I35.0 Nonrheumatic aortic (valve) stenosis (principal); M79.605 Pain in left leg (principal); I70.8 Atherosclerosis of other arteries | CPT/HCPCS: 93926 ==

== ENCOUNTER → 2018-03-06 | Outpatient (CLI) | payer MEDICARE | END | disposition home or self-care (01) | LOC: NM 08:35 | DX: R06.00 Dyspnea, unspecified (principal) | CPT/HCPCS: 96374 ==

== ENCOUNTER → 2018-03-11 | Outpatient (CLI) | payer MEDICARE ==
[~2018-03-11] MED LIST changes: -ACLI400A2 IH; -ALLO300T PO; -ALPR0.5T10 PO; -ASPI-630 PO; -CALC1TAB75 PO; -CETI10TA22 PO; -CLOT15CR5 TP; -CRESTOR5 MG PO; -DOCU-109 PO; -GLIM4TAB2 PO; -GUAI600T47 PO; -HYDR453. TP; +IPRATRPIUM/ALBUTEROL 0.5/2.5MG 3 ML NEBU.; -LEVO100T5 PO; -LIDO700A4 TP; -LIDOCAINE 1% PF 2 ML VIAL. ID PRN; -MAGN500C10 PO; +MIDAZOLAM HCL/PF 5 MG/5 ML VIAL.; -ONDANSETRON PF 4 MG/2 ML VIAL. IV PRN; -PANT40TA5 PO; -PRAM0.255 PO; -PROAIR HFA8.5 GM INH; -PROCHLORPERAZINE 10 MG/2 ML VIAL. IV PRN; -SILV20CR14 TP; -SUCR1TAB PO; -TIZA4TAB PO; -TOLN15SO TP; -TRAM50TA PO; -VALS80TA3 PO; -fentaNYL PF VIAL 100 MCG/2 ML VIAL IV PRN
[2018-03-11] MEDS: REGADENOSON 0.4 MG/5 ML DISP.SYRIN. IV (08:19)
== END | disposition home or self-care (01) ==
LOC: NM 09:18
DX: I27.20 Pulmonary hypertension, unspecified (principal); I36.1 Nonrheumatic tricuspid (valve) insufficiency; I51.7 Cardiomegaly; J44.9 Chronic obstructive pulmonary disease, unspecified; I10 Essential (primary) hypertension; E11.9 Type 2 diabetes mellitus without complications; Z87.891 Personal history of nicotine dependence
CPT/HCPCS: 78452; 93017; 93306; 96375; 96376; A9500; J2785